=== PATIENT | female | born 1950 | race Caucasian/White ===

== ENCOUNTER 2018-03-14 11:45 | Inpatient (IN) | payer MEDICARE, OTHER, SELFPAY ==
[2018-03-14 11:45] VITALS: BP 104/58; PULSE 57; RESP 20; TEMP 36.4; O2SAT 100; BMI 18.6
[2018-03-14 13:17] LABS: Absolute Lymphocyte Count 0.82 X10^3/ul (0.83-4.51); Absolute Neutrophil Count 5.8 X10^3/uL (2.0-7.7); Basophil# 0.01 X10^3/uL; Basophil% 0.1 % (0-1); Eosinophil# 0.02 X10^3/uL; Eosinophils% 0.3 % (0-5); Hematocrit 37.6 % (37-47); Hemoglobin 12.6 g/dl (12.0-15.0); Lymphocyte # 0.82 X10^3/ul (4.0); Lymphocyte % 11.6 % (19-41); Mean Corp Hgb Conc 33.5 g/gl (32-36); Mean Corpuscular Volume 89.5 fL (81-99); Mean Platelet Vol. 8.9 fl (6.2-12.0); Monocyte# 0.36 X10^3/uL; Monocyte% 5.1 % (0-10); Neutrophil # 5.84 X10^3/uL (2.7-7.7); Neutrophil % 82.9 % (47-70); Platelet Count 297 K/mm3 (150-450); RBC Distribution Width CV 13.6 % (11.6-14.6); RBC Distribution Width SD 44.2 fl (35.1-43.9); White Blood Count 7.1 K/mm3 (4.4-11.0)
[2018-03-14 13:18] LABS: POSITIVE COUNT NO; POSITIVE DIFFERENTIAL NO; POSITIVE MORPHOLOGY NO
[2018-03-14] MEDS: Ondansetron 4 MG/2 ML Vial IV (13:26)
[2018-03-14] MEDS: Morphine 4 MG/ML Syringe IV ×3 (13:26→21:22)
[2018-03-14] MEDS: 0.9% Normal Saline 1,000 ML 1000 ML IV (13:26)
[2018-03-14 13:53] LABS: AST(SGOT) 915 U/L (15-37); Alanine Aminotransfer ALT/SGPT 526 U/L (13-56); Albumin, Serum 3.7 g/dL (3.2-5.0); Alkaline Phosphatase 113 U/L (45-117); Anion Gap 12 (5-15); BUN 18 mg/dL (7-18); BUN/Creat Ratio 20.6 RATIO (10-20); Chloride 105 mmol/L (98-107); Creatinine, Serum 0.87 mg/dL (0.55-1.02); EST Glomerular Filtration Rate 69 mL/min (>60); Est Glom Filt Rate - Afr Amer 84 mL/min (>60); Globulin 3.8 g/dL (2.2-4.2); Glucose 169 mg/dL (74-106); Lipase 25303 U/L (73-393); Potassium 3.7 mmol/L (3.5-5.1); Protein, Total 7.5 g/dL (6.4-8.2); Sodium Level 143 mmol/L (136-145)
--- NOTE | 2018-03-14 13:58 | ED.VISSUMM ---
- ER Visit Summary Date of Service: 03/14/18 Chief Complaint: Abdominal pain History of Present Illness: The patient is a 67 F who presents with abdominal pain that began today. Patient states the pain began earlier this morning. Patient states the pain started in her right lower thoracic back and his radiated around to the right upper quadrant. Patient states that she did eat some fatty foods last night before she went to bed. Patient admits to some nausea and vomiting. Patient also admits to some loose stools today. Patient denies any dysuria or hematuria. Patient denies any fevers or chills. Patient denies any chest pain or shortness of breath. Physical Examination: Vital signs are stable. Patient is afebrile. Patient is in no acute distress. Oral mucosa is pink and moist. Neck is supple. Trachea is midline. There is no JVD noted. Heart was regular rate and rhythm. Lungs are clear and equal bilateral. There is good respiratory effort noted. Abdomen is soft. Bowel sounds are normal. There is some tenderness over the right upper quadrant. There is a positive De Leon sign noted. There is no rebound or guarding noted. Cranial nerves II through XII are intact. There are no focal motor or sensory deficits noted. Test Results: CBC was within normal limits. Comprehensive metabolic profile showed an elevated bilirubin of 1.6, ALT was elevated at 526, AST was elevated at 915. Lipase was elevated at 25,303. CT scan of the abdomen and pelvis showed multiple gallstones with distention of the gallbladder. There is questionable wall thickening. There is also inflammation of the pancreas noted. Emergency Department Course and Treatment: Patient was given IV fluids and morphine here. Case was discussed with Dr. Barajas. She will admit the patient to her service. Patient understood and was agreeable with the plan. All questions were answered. Disposition: Admit to hospital Impression: Gallstone pancreatitis This note was generated with Pager dictation software. It may contain incorrect words, spelling, and punctuation that were not noted in review of the chart prior to signing ED Disposition - Plan for ED Patient: Disposition: Acute Care Hospital [facility] Chief Complaint: Abd Pain Diagnosis: Acute gallstone pancreatitis Referrals: Sal Adams MD [Primary Care Provider] -
[2018-03-14 15:28] VITALS: BP 128/68; PULSE 88; RESP 16; O2SAT 100
[2018-03-14 16:32] VITALS: RESP 18; BMI 18.6
[2018-03-14 16:36] VITALS: BP 151/73; PULSE 65; RESP 18; TEMP 36.6; O2SAT 100
[2018-03-14] MEDS: Lactated Ringers 1,000 ML 150 ML IV ×2 (17:15→23:33)
[2018-03-14 17:21] LABS: Lipase 10880 U/L (73-393)
--- NOTE | 2018-03-14 17:51 | PCM.HP.BLA ---
History and Physical Date of Admission: 03/14/18 Chief Complaint: abdominal pain, nausea/emesis History of Present Illness: Pleasant 67 y/o WF who presents with gallstone pancreatitis. She feels that she has had gallbladder disease for years, has had twinges of pain, but never thought to follow up with this. This pain was severe in onset, beginning at 3 am and awoke patient from sleep. She has had nausea and bouts of dry heaving. She presented to [facility] ED. Work up - WBC normal but with left shift of diff, AST/ALT 915/526, normal alk phos, t bili 1.6, lipase 47859 CT scan - multiple gallstones, GB distention with wall thickening, peripancreatic fat stranding or edema - acute pancreatitis Past Medical History: denies major medical illnesses Past Surgical History: colonoscopy 11 y ago hysterectomy/BSO tonsillectomy excision of soft tissue mass of leg - benign Medications: biotin calcium MVI Magnesium Allergies: Has no known drug allergies Social history: TOB use denies ETOH use denies , lives with spouse Mother had breast cancer, daughter had breast cancer Father had prostate cancer Review of Systems: General - denies fevers Cardiovascular denies chest pain, denies history of heart attack Pulmonary denies shortness of breath, denies coughing up blood Gastrointestinal as per HPI, denies blood in stools, has chronic constipation - bowel movement every day but rabbit pellets - like Neurological denies numbness/weakness of extremities, denies seizures, denies history of stroke Genitourinary denies burning with urination, denies blood in urine Hematological denies spontaneous/prolonged bleeding, denies history of blood transfusions, denies history of deep venous thromboses and/or pulmonary emboli Skin denies open non healing wounds Musculoskeletal denies history of fractures Endocrine denies diabetes Psychological denies hallucinations Physical examination: Vital signs Temp 97.6F HR 73 BP 104/58 RR 18 General WD/WN WF in no apparent distress, alert and oriented, not septic appearing HEENT Normocephalic. EOM intact with sclera clear and no icterus noted. Neck is supple with no jugular venous distention noted. Trachea is midline. Lungs clear to auscultation. normal breath sounds in all lung guzman. No rales/rhonchi/wheezing noted. No labored breathing noted, such as retractions. Heart normal S1 and S2 auscultated. No rubs/clicks/murmurs noted. Abdomen soft and benign. Normal bowel sounds. No abdominal bruits noted. No distention or tympany noted. No masses noted. No hepatosplenomegaly noted. Extremities no calf tenderness noted. No pitting edema noted. Genitourinary/Rectal deferred Skin normal skin integrity. Neurological non focal. Psychological normal affect, patient is calm and appropriate Impression: gallstone pancreatitis cholelithiasis Discussion/Plan: I have discussed the above with the patient. I have explained disease process to patient and what procedures will be required. I have recommended ERCP and laparoscopic cholecystectomy. I have described both procedures to patient. I have counseled the patient as to the risks of the procedure, including but not limited to: infection, bleeding, injury to any blood vessels/nerves, scar tissue, injury to any intrabdominal organs, injury to kidney/ureters, injury to bowel/bladder, injury to the common bile duct/biliary tree, bile leakage, intraabdominal abscess/bleeding, hernias at incisional sites, wound infections, possible open procedure, complications of anesthesia, postoperative pneumonia/cardiac problems/blood clots etc. the patient understands. She agrees to proceed with above, depending upon serum lab test evaluation in the morning, timing of the procedures will be determined. I have answered all questions to the patients satisfaction and the patient has no further questions.
[2018-03-14 19:22] LABS: Lipase 7178 U/L (73-393)
[2018-03-14 20:16] VITALS: BP 141/83; PULSE 66; RESP 18; TEMP 36.6; O2SAT 95
[2018-03-15] VITALS (11 sets, daily range): BP systolic 119–146; BP diastolic 63–77; PULSE 62–74; RESP 16–18; TEMP 36.3–37.2; O2SAT 93–100; BMI 18.6; BMI 19.3
--- NOTE | 2018-03-15 01:22 | NURSING ---
I took away patients sips and chips at midnight for possible ERCP in the a.m. on 03/15/18.
[2018-03-15] MEDS: Morphine 4 MG/ML Syringe IV ×3 (02:00→09:26)
[2018-03-15] MEDS: Ondansetron 4 MG/2 ML Vial IV ×2 (06:04→22:34)
[2018-03-15] MEDS: Lactated Ringers 1,000 ML 150 ML IV ×3 (06:07→20:50)
[2018-03-15 06:32] LABS: AST(SGOT) 632 U/L (15-37); Alanine Aminotransfer ALT/SGPT 727 U/L (13-56); Albumin, Serum 3.2 g/dL (3.2-5.0); Alkaline Phosphatase 127 U/L (45-117); Globulin 3.8 g/dL (2.2-4.2); Lipase 1802 U/L (73-393)
[2018-03-15] MEDS: 0.9% NaCl Peripheral Flush Adult/Peds IV ×2 (09:26→17:54)
--- NOTE | 2018-03-15 10:30 | CASEMGMT ---
KRISTAL SIEGEL Face to Face with patient for initial transition planning/care coordination assessment. RN CM introduced self and role at [facility]. Patient lying in bed, alert and oriented. Patient willing to participate in assessment and is able to answer all questions appropriately. Care providers, pharmacy, and demographics verified. See link attached. Patient wishes to discharge home, denies need for home health at this time. Patient states she has no further needs or concerns at this time. CM to follow for discharge planning needs that may arise. Disposition Plan: Patient to discharge home with family support and follow-up plans in place. Nikki BRUNSON, RN, CM
--- NOTE | 2018-03-15 13:36 | NURSING ---
report called to nitesh in AC at this time-
--- NOTE | 2018-03-15 14:50 | NURSING ---
patient taken to surgery @ 1330- off unit at this time.
--- NOTE | 2018-03-15 15:16 | PCM.IMDPSTOP ---
Immediate Post-Op Note Date of Procedure: 03/15/18 Primary Surgeon/Physician: Danielle Barajas financial rep: Dhaval Mendes Pre-Operative Diagnosis: cholelithiasis, choledocholithiasis, acute pancreatitis Post-Operative Diagnosis: cholelithiasis, acute on chronic cholecystitis, normal cholangiogram Surgery/Procedure Performed:: laparoscopic cholecystectomy with cholangiograms Description of Surgical Findings:: edematous gallbladder wall, normal cholangiograms, cholelithiasis, acute on chronic cholecystitis Estimated Blood Loss: 30 ml Specimen's removed: gallbladder and contents Type of Anesthesia:: General ASA Class: ASA1 Normal Healthy Patient - Admit VTE Documentation VTE Present on Admission: Yes VTE Mechan Device Prophylaxis: SCD's
--- NOTE | 2018-03-15 15:22 | PCM.DC.GB ---
Discharge Diet: No Restrictions - drink plenty of fluids, avoid carbonated beverages for a few days Discharge Activity: Return to Normal Activity, May not drive while taking narcotic pain medications. Call your doctor if your incision/area has: Continuous Slow Oozing, Foul Smelling Discharge Call your doctor if you observe: Fever of 101 or Higher Additional Dressing/Incision Instructions:: Leave dressings intact. May get wet in shower. Do not soak - no tub baths/swimming Allergies/Adverse Reactions: Allergies Sulfa (Sulfonamide Antibiotics) Allergy (Verified 05/04/16 14:59) Unknown Medications to take at Discharge Biotin 1,000 mcg PO DAILY 03/14/18 Calcium Carbonate/Vitamin D3 [Calcium 500-Vit D3 600 Tablet] 1 tab PO DAILY 03/14/18 Magnesium Oxide [Magnesium] 400 mg PO DAILY 03/14/18 Multivitamin [Multiple Vitamins] 1 tab PO DAILY 03/14/18 Hydrocodone/Acetaminophen [[place] 5-325 Tablet] 1 ea PO Q6H PRN PRN 5 Days #20 tab 03/15/18 The following prescriptions were given: Hydrocodone/Acetaminophen [[place] 5-325 Tablet] 1 ea PO Q6H PRN PRN 5 Days #20 tab PRN Reason: Pain Primary Care Physician: Sal Adams MD [Primary Care Provider] - Test Results: Test results from this visit will be discussed in further detail at your follow-up appointment, if applicable. Please Follow Up With: Danielle Barajas MD - call When: to be seen in 7-10 days, please call for date and time, thank you
[2018-03-15] MEDS: Bupiv/Epi 0.5% Mpf 30 ML Vial (16:50)
--- NOTE | 2018-03-15 16:54 | OP.PCM_ITS ---
Report of Operation Date of Procedure: 03/15/18 Pre-Operative Diagnosis: cholelithiasis, choledocholithiasis, acute pancreatitis Post-Operative Diagnosis: cholelithiasis, acute on chronic cholecystitis, normal cholangiogram Surgery/Procedure Performed:: laparoscopic cholecystectomy with cholangiograms Description of Surgical Findings:: edematous gallbladder wall, normal cholangiograms, cholelithiasis, acute on chronic cholecystitis landscape architecture professor: Dhaval Mendes Type of Anesthesia:: General Anesthesiologist: Geo La Specimen's removed: gallbladder and contents Estimated Blood Loss (mL): 30 ml Fluids Replaced: 1000 ml RL Description of Procedure: After informed consent was given, the patient was brought to the Operating Room and placed in the supine position. Appropriate time out protocol was followed. The patient was then placed under general endotracheal anesthesia. The abdomen was then prepped with a sterile surgical skin preparation and sterile surgical drapes were placed. A skin fold near the umbilical dimple was grasped with penetrating clamps and the skin and subcutaneous tissues were infiltrated with 0.5% marcaine with epinephrine. A skin incision was then made with a 15 blade scalpel. The anterior abdominal wall was elevated and a Veress needle was carefully inserted into the intraabdominal cavity. It was checked to be in the proper position with a normal saline drop test. A CO2 pneumoperitoneum was then created. Once this was achieved, then the Veress needle was removed and an 11mm trocar was placed in its stead. A 10mm laparoscope was then inserted into the trocar and careful attention was directed to the intraabdominal contents. There was no evidence of injury to any intraabdominal organs from insertion of the Veress needle or the trocar. Under direct visualization, a 5mm subxiphoid trocar and two lateral 5mm right subcostal trocars were placed. The skin and subcutaneous tissues at these sites were infiltrated with 0.5% marcaine with epinephrine prior to placement of these trocars. Attention was then directed to the right upper quadrant of the abdomen. Graspers were placed in the lateral trocars to grasp the distal aspect of the gallbladder and direct it cephalad and to grasp the gallbladder at Bhardwaj?s pouch and direct it laterally. There were omental adhesions to the free surface of the gallbladder wall. The gallbladder wall was edematous. Dissection then began on the proximal gallbladder continuing down to the area of the triangle of Calot to bluntly dissect out the cystic duct. The neck of the gallbladder was identified and blunt dissection continued to dissect out a segment of the cystic duct. A clip was then placed on the neck of the gallbladder. A small ductotomy was then made. A Ranfac catheter was brought in through a separate skin incision and placed into the cystic duct. An intraoperative cholangiogram was performed under fluoroscopy. The xray revealed no lesions in the common bile duct, arborization of the biliary tree, and good flow into the duodenum. The Ranfac catheter was then removed and two clips were placed proximal to the ductotomy and the cystic duct was then transected. The cystic artery was visualized and bluntly isolated and then two clips were placed proximally and one clip distally and then it was transected between the proximal and distal clips. The gallbladder was then from the liver bed using electrocautery and thus able to be brought out of the umbilical port. It was then forwarded to pathology for analysis. The liver bed was carefully examined. There was no evidence of bile leakage or bleeding. Because of inflammatory oozing, Yissel was applied to the liver bed. The cystic duct stump and cystic artery stump had their clips intact and there was no evidence of bile leakage or bleeding. The remainder of the abdomen was grossly normal. The CO2 was released and all trocars removed intact. The periumbilical fascia was approximated with a [id number] 0 vicryl suture. All skin incision were closed with 4-0 monocryl in a subdermal fashion. Cavilol and Steristrips were used to reinforce the skin closure. Sterile dressings were applied to all wounds. The patient was extubated and brought to the Recovery Room in stable condition. - Complications none noted - Admit VTE Documentation VTE Present on Admission: Yes VTE Mechan Device Prophylaxis: SCD's
--- NOTE | 2018-03-15 18:07 | SUR.PHASEI ---
ON ARRIVAL TO PACU, RIGHT ANTECUBITAL IV INFILTRATED AND LEAKING, ARM WITH CREPITUS FROM JUST ABOVE RIGHT ANTECUBITAL TO HAND, MILD EDEMA NOTED.
--- NOTE | 2018-03-15 20:42 | NURSING ---
Patient up and ambulated in hallway with this RN.
[2018-03-16] MEDS: Morphine 4 MG/ML Syringe IV (00:06)
[2018-03-16 03:30] VITALS: BP 125/62; PULSE 74; RESP 16; TEMP 37.1; O2SAT 94
[2018-03-16] MEDS: Lactated Ringers 1,000 ML 150 ML IV (03:37)
--- NOTE | 2018-03-16 05:47 | NURSING ---
Patient walked out with SKIN PASS OPERATOR in hallway to get coffee and then returned to room. Now sitting in bed watching TV.
--- NOTE | 2018-03-16 07:09 | PCM.PN.SRG ---
Patient Problems: Active and Suspected Problems Acute gallstone pancreatitis (Acute) Subjective: patient states that she wants to go home now, however, when I called last night and spoke to nurse, the nurse stated that she wanted to stay overnight feels well, tolerated liquids - Physical Exam General: Alert, Oriented x3 Oral: Moist Mucosa Neck: Supple Cardiovascular: Regular rate Abdomen: Soft, - - dressings intact, slight seepage with bruising of perumbilical site Vital Signs Temp Pulse Resp BP Pulse Ox 98.7 F 74 16 125/62 H 94 03/16/18 03:30 03/16/18 03:30 03/16/18 03:30 03/16/18 03:30 03/16/18 03:30 Oxygen Delivery Method Room Air Weight: 52.6 kg Body Mass Index (BMI) 19.3 Intake and Output for Last 24 Hours 03/14/18 03/15/18 03/16/18 23:59 23:59 23:59 Intake Total 370 / 370 4668 / 4668 1011 / 1011 Output Total 1675 / 1675 1100 / 1100 Balance 370 / 370 2993 / 2993 -89 / -89 Medical Necessity - Tobacco Use Smoking Status: Never smoker Assessment/Plan All Active Problems Acute gallstone pancreatitis (Acute) Impression: POD#1 s/p laparoscopic cholecystectomy with IOC PLan: d/c to home, follow up with me on Thursday, call for time
[2018-03-16 07:34] VITALS: BP 127/64; PULSE 75; RESP 18; TEMP 37.2; O2SAT 94
[2018-03-16 07:50] VITALS: BP 127/64; PULSE 75; RESP 18; TEMP 37.2; O2SAT 94
--- NOTE | 2018-03-16 10:50 | GALL_PTH ---
PATIENT: HUMA HOROWITZ LOC: MS3 U#:[id number] AGE/SX: 67/F ROOM: MS316 RE03/14/[address]: Dr. Danielle Barajas MD : 1950 BED: 1 DIS: 03/16/2018 SPEC #: [id number] RECD: 03/16/18 13:48 STATUS: MAKENZIE REQ #: [id number] JUMANA: 03/16/18 10:[address]: Danielle Barajas DEPT: SURGICAL PATHOLOGY RECD BY: Thompson Wall ENTERED: 03/16/18 13:49 SP TYPE: ALVARADO PARKS DR: Dr. Sal Adams MD Tissues: Gallbladder, NOS Procedures: Surgery Specimen Level III HEADER OPERATION: Laparoscopic cholecystectomy with intraoperative cholangiogram PRE-OP DIAGNOSIS: Gallstones pancreatitis, cholelithiasis TISSUE SUBMITTED: Gallbladder MICROSCOPIC DIAGNOSIS Gallbladder, cholecystectomy: Chronic cholecystitis and cholelithiasis. AM:ulises 03/18/18 MICROSCOPIC DESCRIPTION Slides are reviewed. GROSS DESCRIPTION Received is one container labeled with the patient's name and designated gallbladder. The specimen consists of a gallbladder measuring 9.5 x 2.5 x 2.5 cm. The external surface is smooth and glistening. Focally, it is granular, hemorrhagic and contains cautery artifact. The lumen of the gallbladder and the specimen container contains multiple black calculi ranging in size from 0.2 to 1.3 cm. The gallbladder mucosa is bile-stained and free of mass lesions. The gallbladder wall averages 0.2 cm in thickness. Golf Course Superintendent sections of the gallbladder and the cystic duct are submitted in one cassette. / AM:ulises 03/16/18 TC:3 [facility]: [id number]
== END 2018-03-16 07:52 | disposition home or self-care (01) | DRG 419 ==
LOC: ED 15:35 → MS3 16:03
PROVIDERS: Admitting Provider Surgery; Emergency Provider Emergency Medicine; Family Provider Family Medicine; PCP Family Medicine; Visit Provider Surgery
PROC: 0FT44ZZ Resection of Gallbladder, Percutaneous Endoscopic Approach (ICD-10-PCS; CPT 47610; principal; 2018-03-15 10:30)
DX: K80.12 Calculus of gallbladder with acute and chronic cholecystitis without obstruction (principal)
CPT/HCPCS: 36415; 74176; 74300; 76000; 80053; 80076; 83690; 85025; 88304; 93005; 97802; 99282; J7030; J7120; A4216; J2405

== ENCOUNTER → 2018-07-01 12:21 | Outpatient (CLI) | payer MEDICARE, OTHER, SELFPAY ==
--- NOTE | 2018-07-01 12:25 | BI_ITS ---
MAMMOGRAPHY - BILATERAL SCREENING REASON FOR EXAM: Female, 67 years old. Routine annual screening examination. PERTINENT HISTORY: Daughter with breast cancer. Mother with breast cancer. TECHNIQUE: Digital bilateral breast day (3D mammographic acquisition) in the CC and MLO projections. 2-D mediolateral oblique (MLO) and craniocaudad (CC) views of both breasts were obtained. CAD: Full Field Digital Mammography with Computer Added Detection was performed. COMPARISON: Comparison is made with prior study dated November 26, 2016 and April 28, 2013. FINDINGS: Breast Composition: There are scattered areas of fibroglandular density. There are no dominant masses or suspicious calcifications. Stable small bilateral axillary lymph nodes. No other significant abnormalities are identified. There has been no significant change since the prior study. BI/SCREENING MAMM (CAD), BILAT IMPRESSION: Stable bilateral screening mammogram. Yearly follow-up mammogram recommended. (A) ASSESSMENT CATEGORY: BIRADS Category 2: Benign. A letter regarding these results will be sent to the patient by the facility within 30 days. Approximately 10% of breast cancers are not detected by mammography. A normal mammogram should not delay biopsy of a clinically suspicious abnormality. [id number] Electronically Signed: Theodore Hunter MD at 14:49 EST Tel [phone], Service support ,
--- NOTE | 2018-07-01 12:27 | BD_ITS ---
STUDY: DUAL ENERGY X-RAY ABSORPTIOMETRY / DXA REASON FOR EXAM: Female, 67 years old. The patient is postmenopausal. No loss of height. TECHNIQUE: Bone Mineral Density (BMD) measurements of lumbar spine and bilateral hips were obtained. COMPARISON: Comparison is made with prior study dated April 28, 2013. FINDINGS: Lumbar Spine (L1-L4): g/cm2 (1.004) / T-score (-1.5) / Z-score (0.1) Findings are suggestive of osteopenia with a moderate fracture risk. Left Femur Total: g/cm2 (0.796) / T-score (-1.7) / Z-score (-0.5) Left Femoral Neck: g/cm2 (0.790) / T-score (-1.8) / Z-score (-0.3) Right Femur Total: g/cm2 (0.790) / T-score (-1.7) / Z-score (-0.5) Right Femoral Neck: g/cm2 (0.800) / T-score (-1.7) / Z-score (-0.2) The T-Scores on the most recent prior examination were: Lumbar Spine (L1-L4): There has been worsening of bone density since the previous examination. Left Femur Total: which represents a worsening of 8.7%. Right Femur Total: which represents a worsening of 7.9%. BD/Dexa Bone Density Study IMPRESSION: The patient is considered osteopenic as outlined below according to World [place] Organization (WHO) criteria with a moderate fracture risk. There has been worsening of bone density since the previous examination. Reference Information: The T-score is the number of standard deviations above or below the standard which is normal for young adults at their peak bone mineral density. The World Health Organization (WHO) interprets the T-scores as follows: Above -1 Normal bone density Between -1 and -2.5 Osteopenia Equal to / or below -2.5 Osteoporosis As a practical clinical guideline, osteopenia may be graded as follows: Mild -1 through -1.5 Moderate -1.6 through -2.0 Severe -2.1 through -2.4 The Z-score is the number of standard deviations above or below age-matched controls. A Z-score of less than -1.5 would be considered abnormal. References: 1. NIH Osteoporosis and Related Bone Diseases http://www.osteo.org 2. International Society for Clinical Densitometry http://www.iscd.org 3. National Osteoporosis Foundation http://www.nof.org Electronically Signed: Theodore Hunter MD at 14:08 EST Tel [phone], Service support ,
--- OUTSIDE RECORDS SUMMARY | 2018-08-17 07:28 | XMS RPT_ITS ---
:1950 Author Organization OHIP Care Team Providers Name Role Phone DANIELLE BARAJAS Attending Unavailable Sal Adams Attending Unavailable Sal Adams Referring Unavailable Sal Adams Primary Care Unavailable Sal Adams Primary Care Unavailable Danielle Barajas Admitting Unavailable Danielle Barajas Attending Unavailable Miguel Funes Attending Unavailable Danielle Barajas Referring Unavailable PROBLEMS PROBLEMS DATE TYPE CONDITION / CODE ATTENDING STATUS SOURCE 07/01/2018 Unknown M85.89 - Other Sal Adams Active Jonelle specified disorders of Community bone density and Hospital structure, multiple Repository sites / M85.89(ICD-10) 07/01/2018 Unknown Z12.31 - Encounter for Sal Adams screening mammogram [facility] for malignant neoplasm [facility] breast / Repository Z12.31(ICD-10) 04/16/2018 Unknown R94.31 - Abnormal Teodoro Funes electrocardiogram [facility] [ECG] [EKG] / Hospital R94.31(ICD-10) Repository 03/16/2018 Unknown G89.18 - Other acute Danielle Barajas postprocedural pain / Community G89.18(ICD-10) Hospital Repository PROCEDURES PROCEDURES No Procedure Records FoundRESULTS RESULTS DEXA BONE DENSITY Observed: 07/01/2018 Status: F Source: [place] STUDY 12:25 PM [facility] REPOSITORY [facility] Imaging Services [address] [place] [address] Dexa Bone Density Study MR#: [id number] Acct: [id number] Name: HUMA HOROWITZ Rep #: [id number] : 1950 F 67 From: Theodore Hunter MD PCP: Sal Adams MD Status: REG CLI Study: Dexa Bone Density Study Date of Exam: 07/01/18 Exam# [id number] Ordering Dr: Sal Adams MD STUDY: DUAL ENERGY X-RAY ABSORPTIOMETRY / DXA REASON FOR EXAM: Female, 67 years old. The patient is postmenopausal. No loss of height. TECHNIQUE: Bone Mineral Density (BMD) measurements of lumbar spine and bilateral hips were obtained. COMPARISON: Comparison is made with prior study dated April 28, 2013. FINDINGS: Lumbar Spine (L1-L4): g/cm2 (1.004) / T-score (-1.5) / Z-score (0.1) Findings are suggestive of osteopenia with a moderate fracture risk. Left Femur Total: g/cm2 (0.796) / T-score (-1.7) / Z- score (-0.5) Left Femoral Neck: g/cm2 (0.790) / T-score (-1.8) / Z- score (-0.3) Right Femur Total: g/cm2 (0.790) / T-score (-1.7) / Z- score (-0.5) Right Femoral Neck: g/cm2 (0.800) / T-score (-1.7) / Z-score (-0.2) The T-Scores on the most recent prior examination were: Lumbar Spine (L1-L4): There has been worsening of bone density since the previous examination. Left Femur Total: which represents a worsening of 8.7%. Right Femur Total: which represents a worsening of 7.9%. BD/Dexa Bone Density Study IMPRESSION: The patient is considered osteopenic as outlined below according to World [place] Organization (WHO) criteria with a moderate fracture risk. There has been worsening of bone density since the previous examination. Reference Information: The T-score is the number of standard deviations above or below the standard which is normal for young adults at their peak bone mineral density. The World Health Organization (WHO) interprets the T-scores as follows: Above -1 Normal bone density Between -1 and -2.5 Osteopenia Equal to / or below -2.5 Osteoporosis As a practical clinical guideline, osteopenia may be graded as follows: Mild -1 through -1.5 Moderate -1.6 through -2.0 Severe -2.1 through -2.4 The Z-score is the number of standard deviations above or below age-matched controls. A Z-score of less than -1.5 would be considered abnormal. References: 1. NIH Osteoporosis and Related Bone Diseases http://www.osteo.org 2. International Society for Clinical Densitometry http://www.iscd.org 3. National Osteoporosis Foundation http://www.nof.org Electronically Signed: Theodore Hunter MD at 14:08 EST Tel [phone], Service support , CC: Sal Adams MD Veterinary Poultry Inspector: Signed SCREENING MAMM (CAD), Observed: 07/01/2018 Status: F Source: [facility] 12:25 PM [facility] REPOSITORY [facility] Imaging Services [address] [place] [address] SCREENING MAMM (CAD), BILAT MR#: [id number] Acct: [id number] Name: HUMA HOROWITZ Rep #: [id number] : 1950 F 67 From: Theodore Hunter MD PCP: Sal Adams MD Status: REG CLI Study: SCREENING MAMM (CAD), BILAT Date of Exam: 07/01/18 Exam# [id number] Ordering Dr: Sal Adams MD MAMMOGRAPHY - BILATERAL SCREENING REASON FOR EXAM: Female, 67 years old. Routine annual screening examination. PERTINENT HISTORY: Daughter with breast cancer. Mother with breast cancer. TECHNIQUE: Digital bilateral breast day (3D mammographic acquisition) in the CC and MLO projections. 2-D mediolateral oblique (MLO) and craniocaudad (CC) views of both breasts were obtained. CAD: Full Field Digital Mammography with Computer Added Detection was performed. COMPARISON: Comparison is made with prior study dated November 26, 2016 and April 28, 2013. FINDINGS: Breast Composition: There are scattered areas of fibroglandular density. There are no dominant masses or suspicious calcifications. Stable small bilateral axillary lymph nodes. No other significant abnormalities are identified. There has been no significant change since the prior study. BI/SCREENING MAMM (CAD), BILAT IMPRESSION: Stable bilateral screening mammogram. Yearly follow-up mammogram recommended. (A) ASSESSMENT CATEGORY: BIRADS Category 2: Benign. A letter regarding these results will be sent to the patient by the facility within 30 days. Approximately 10% of breast cancers are not detected by mammography. A normal mammogram should not delay biopsy of a clinically suspicious abnormality. [id number] Electronically Signed: Theodore Hunter MD at 14:49 EST Tel [phone], Service support , CC: Sal Adams MD Veterinary Poultry Inspector: Signed PROGRESS Observed: 03/24/2018 Status: COMPLETED Source: [place] 2:31 PM [facility] REPOSITORY HNO ID: [id number] Author: Danielle Barajas Service: (none) Author Type: Physician Type: Progress Notes Filed: 03/27/2018 7:46 PM Note Text: Ms. Horowitz is s/p laparoscopic cholecystectomy for acute on chronic cholecystitis and cholelithiasis on 03/15/18 and also presentation of gallstone pancreatitis. Intraoperative cholangiograms were clear. Patient complaint of soreness in right upper quadrant. Examination: abdomen is soft and benign, wounds are well healed and no evidence of infection Impression: s/p laparoscopic cholecystectomy Plan: follow up as per needed. Patient to return to her primary physician for medical care. CNOV Observed: 03/24/2018 Status: COMPLETED Source: [place] 1:20 PM [facility] REPOSITORY Office Visit (GENSWS) LORHUMA ([id number]) 1950 F Date Time Provider Department 03/24/18 1:20 PM DANIELLE BARAJAS During your visit today, we recorded the following information about you: Danielle Barajas MD 03/27/2018 7:46 PM Signed Ms. Horowitz is s/p laparoscopic cholecystectomy for acute on chronic cholecystitis and cholelithiasis on 03/15/18 and also presentation of gallstone pancreatitis. Intraoperative cholangiograms were clear. Patient complaint of soreness in right upper quadrant. Examination: abdomen is soft and benign, wounds are well healed and no evidence of infection Impression: s/p laparoscopic cholecystectomy Plan: follow up as per needed. Patient to return to her primary physician for medical care. Referring Provider: SELF [200] Allergies As of Date: 03/24/2018 Noted Allergy Reaction SULFA (SULFONAMIDE ANTIBIOTICS) 03/24/2018 16 - Unknown Comments: childhood Date Reviewed: Never Reviewed Reason for Visit: Post Op [174] Cmt: post op lap catherine Primary Visit Diagnosis:Surgery follow-up examination [Z09] Problem List As Of Date: 03/24/2018 (None) Encounter Status:Closed by MD DANIELLE BARAJAS on 03/27/18 OPERATIVE REPORT Observed: 03/21/2018 Status: F Source: [place] 6:04 PM [facility] REPOSITORY [facility] Medical Records Department [address] [place] [address] Operative Report 03/15/18 1653 MR#: [id number] Acct: [id number] Name: HUMA HOROWITZ Rep #: [id number] : 1950 67 From: Danielle Barajas MD PCP: Sal Adams MD Status: DIS IN Y Location: MS3 SB593-2 Report of Operation Date of Procedure: 03/15/18 Pre-Operative Diagnosis: cholelithiasis, choledocholithiasis, acute pancreatitis Post-Operative Diagnosis: cholelithiasis, acute on chronic cholecystitis, normal cholangiogram Surgery/Procedure Performed:: laparoscopic cholecystectomy with cholangiograms Description of Surgical Findings:: edematous gallbladder wall, normal cholangiograms, cholelithiasis, acute on chronic cholecystitis tumble tailstock turret lathe operator: Dhaval Mendes Type of Anesthesia:: General Anesthesiologist: Geo La Specimen's removed: gallbladder and contents Estimated Blood Loss (mL): 30 ml Fluids Replaced: 1000 ml RL Description of Procedure: After informed consent was given, the patient was brought to the Operating Room and placed in the supine position. Appropriate time out protocol was followed. The patient was then placed under general endotracheal anesthesia. The abdomen was then prepped with a sterile surgical skin preparation and sterile surgical drapes were placed. A skin fold near the umbilical dimple was grasped with penetrating clamps and the skin and subcutaneous tissues were infiltrated with 0.5% marcaine with epinephrine. A skin incision was then made with a 15 blade scalpel. The anterior abdominal wall was elevated and a Veress needle was carefully inserted into the intraabdominal cavity. It was checked to be in the proper position with a normal saline drop test. A CO2 pneumoperitoneum was then created. Once this was achieved, then the Veress needle was removed and an 11mm trocar was placed in its stead. A 10mm laparoscope was then inserted into the trocar and careful attention was directed to the intraabdominal contents. There was no evidence of injury to any intraabdominal organs from insertion of the Veress needle or the trocar. Under direct visualization, a 5mm subxiphoid trocar and two lateral 5mm right subcostal trocars were placed. The skin and subcutaneous tissues at these sites were infiltrated with 0.5% marcaine with epinephrine prior to placement of these trocars. Attention was then directed to the right upper quadrant of the abdomen. Graspers were placed in the lateral trocars to grasp the distal aspect of the gallbladder and direct it cephalad and to grasp the gallbladder at Bhardwaj s pouch and direct it laterally. There were omental adhesions to the free surface of the gallbladder wall. The gallbladder wall was edematous. Dissection then began on the proximal gallbladder continuing down to the area of the triangle of Calot to bluntly dissect out the cystic duct. The neck of the gallbladder was identified and blunt dissection continued to dissect out a segment of the cystic duct. A clip was then placed on the neck of the gallbladder. A small ductotomy was then made. A Ranfac catheter was brought in through a separate skin incision and placed into the cystic duct. An intraoperative cholangiogram was performed under fluoroscopy. The xray revealed no lesions in the common bile duct, arborization of the biliary tree, and good flow into the duodenum. The Ranfac catheter was then removed and two clips were placed proximal to the ductotomy and the cystic duct was then transected. The cystic artery was visualized and bluntly isolated and then two clips were placed proximally and one clip distally and then it was transected between the proximal and distal clips. The gallbladder was then from the liver bed using electrocautery and thus able to be brought out of the umbilical port. It was then forwarded to pathology for analysis. The liver bed was carefully examined. There was no evidence of bile leakage or bleeding. Because of inflammatory oozing, Yissel was applied to the liver bed. The cystic duct stump and cystic artery stump had their clips intact and there was no evidence of bile leakage or bleeding. The remainder of the abdomen was grossly normal. The CO2 was released and all trocars removed intact. The periumbilical fascia was approximated with a aktqwa-at-vtjic 0 vicryl suture. All skin incision were closed with 4-0 monocryl in a subdermal fashion. Cavilol and Steristrips were used to reinforce the skin closure. Sterile dressings were applied to all wounds. The patient was extubated and brought to the Recovery Room in stable condition. - Complications none noted - Admit VTE Documentation VTE Present on Admission: Yes VTE Mechan Device Prophylaxis: SCD's 03/21/181803 <Electronically signed by Danielle Barajas MD> Date Danielle Barajas MD CC: Sal Adams MD; Danielle Barajas MD Signed 12 LEAD ELECTROCARDIOGRAM Observed: 03/19/2018 Status: F Source: [place] 1:37 PM [facility] REPOSITORY [facility] Cardiovascular Services [address] [place] [address] 12 Lead EKG 03/15/18 05 MR#: [id number] Acct: [id number] Name: HUMA HOROWITZ Rep #: [id number] : 1950 67 From: Miguel Funes MD Attending Dr: Danielle Barajas MD Status: DIS IN Ordering Dr: Orville Larose MD Date: 03/15/18 Location: PR3 Sex: F C Admitted: 03/14/18 Test Reason : AM EKG Blood Pressure : / mmHG Vent. Rate : 061 BPM Atrial Rate : 061 BPM P-R Int : 164 ms QRS Dur : 080 ms QT Int : 422 ms P-R-T Axes : 037 065 047 degrees QTc Int : 424 ms Normal sinus rhythm Nonspecific T wave abnormality Abnormal ECG No previous ECGs available Confirmed by SHANTEL KULKARNI, MIGUEL ([id number]), manager editorial VICTOR M HERRERA ([id number]) on 03/19/2018 1:37:16 PM Referred By: POWER Confirmed By:MIGUEL FUNES MD 03/19/18 1337 Date Miguel Funes MD CC: Orville Larose MD; Sal Adams MD; Danielle Barajas MD Signed GALLBLADDER Observed: 03/16/2018 Status: F Source: [place] 10:50 AM [facility] REPOSITORY Patient: HUMA HOROWITZ : 1950 (67/F) Acct Num: [id number] Phys: Danielle Barajas MD Unit Num: [id number] Loc: [facility] [id number] Specimen: [id number] Received: 03/16/18 - 1348 Spec Type: GALLBLADDE TISSUES TISSUES: Gallbladder, NOS GROSS DESCRIPTION Received is one container labeled with the patient's name and designated gallbladder. The specimen consists of a gallbladder measuring 9.5 x 2.5 x 2.5 cm. The external surface is smooth and glistening. Focally, it is granular, hemorrhagic and contains cautery artifact. The lumen of the gallbladder and the specimen container contains multiple black calculi ranging in size from 0.2 to 1.3 cm. The gallbladder mucosa is bile-stained and free of mass lesions. The gallbladder wall averages 0.2 cm in thickness. Fixture Repairer Fabricator sections of the gallbladder and the cystic duct are submitted in one cassette. / AM:ulises 03/16/18 TC:3 CPT: 20077 HEADER OPERATION: Laparoscopic cholecystectomy with intraoperative cholangiogram PRE-OP DIAGNOSIS: Gallstones pancreatitis, cholelithiasis TISSUE SUBMITTED: Gallbladder MICROSCOPIC DESCRIPTION Slides are reviewed. MICROSCOPIC DIAGNOSIS Gallbladder, cholecystectomy: Chronic cholecystitis and cholelithiasis. AM:ulises 03/18/18 Signed Luis E Yolanda 03/18/18 <signature on file> Performed By: #### PGALL #### [facility] [address] [place] [address]. [place], [address] DISCHARGE INSTRUCTION Observed: 03/16/2018 Status: F Source: [place] 7:12 AM [facility] REPOSITORY [facility] Medical Records Department [address] [place] [address] Instructions for Home/Discharge Instructions 03/15/18 1522 MR#: [id number] Acct: [id number] Name: HUMA HOROWITZ Rep #: [id number] : 1950 67 From: Danielle Barajas MD PCP: Sal Adams MD Status: ADM IN ADDENDUM by Danielle Barajas MD on 03/16/18 at 0711 Call to make an appointment to follow up with me on Thursday, thank you Date Danielle Barajas MD cc: Sal Adams MD * Signed Discharge Diet: No Restrictions - drink plenty of fluids, avoid carbonated beverages for a few days Discharge Activity: Return to Normal Activity, May not drive while taking narcotic pain medications. Call your doctor if your incision/area has: Continuous Slow Oozing, Foul Smelling Discharge Call your doctor if you observe: Fever of 101 or Higher Additional Dressing/Incision Instructions:: Leave dressings intact. May get wet in shower. Do not soak - no tub baths/swimming Allergies/Adverse Reactions: Allergies Sulfa (Sulfonamide Antibiotics) Allergy (Verified 05/04/16 14:59) Unknown Medications to take at Discharge Biotin 1,000 mcg PO DAILY 03/14/18 Calcium Carbonate/Vitamin D3 [Calcium 500-Vit D3 600 Tablet] 1 tab PO DAILY 03/14/18 Magnesium Oxide [Magnesium] 400 mg PO DAILY 03/14/18 Multivitamin [Multiple Vitamins] 1 tab PO DAILY 03/14/18 Hydrocodone/Acetaminophen [Mineral 5-325 Tablet] 1 ea PO Q6H PRN PRN 5 Days #20 tab 03/15/18 The following prescriptions were given: Hydrocodone/Acetaminophen [Mineral 5-325 Tablet] 1 ea PO Q6H PRN PRN 5 Days #20 tab PRN Reason: Pain Primary Care Physician: Sal Adams MD [Primary Care Provider] - Test Results: Test results from this visit will be discussed in further detail at your follow-up appointment, if applicable. Please Follow Up With: Danielle Barajas MD - call When: to be seen in 7-10 days, please call for date and time, thank you 03/15/18 5398 <Electronically signed by Danielle Barajas MD> Date Danielle Barajas MD CC: Sal Adams MD CHOLANGIOGRAM/ O Observed: 03/15/2018 Status: F Source: [place] R,INITIAL 10:56 AM [facility] REPOSITORY [facility] Imaging Services [address] [place] [address] Cholangiogram/ O R,Initial MR#: [id number] Acct: [id number] Name: HUMA HOROWITZ Rep #: [id number] : 1950 F 67 From: Fredrick Conn DO PCP: Sal Adams MD Status: ADM IN Study: Cholangiogram/ O R,Initial Date of Exam: 03/15/18 Exam# [id number] Ordering Dr: Danielle Barajas MD CLINICAL HISTORY: Female, 67 years old. Cholecystitis. PROCEDURE: CHOLANGIOGRAM - intraoperative FLUOROSCOPY TIME (if supplied): ( ) minutes/seconds TECHNIQUE: 4 intraoperative images were presented for interpretation. COMPARISON: CT of the head and pelvis, March 14, 2018. FINDINGS: The images demonstrate surgical instruments overlying the region of the second portion of the duodenum. There is a catheter in the cystic duct. There is opacification of the intra and extrahepatic bile ducts without dilatation stricture or filling defect. There is free spillage of contrast into the duodenum with reflux into the proximal pancreatic duct. There is also vague hypodensity suggesting contrast within the gallbladder. Please refer to the operative report for further details. RAD/Cholangiogram/ O R,Initial IMPRESSION: Intraoperative cholangiogram. Electronically Signed: Fredrick Conn DO at 16:32 EDT Tel [phone], Service support , CC: Sal Adams MD; Danielle Barajas MD Veterinary Poultry Inspector: Signed LIVER PROFILE Collected: 03/15/2018 Status: F Source: [place] 5:50 AM [facility] REPOSITORY TYPE CODE TESTS RESULT OUT OF RANGE REFERENCE UNITS LAB L501.1500 6.4-8.2 g/dL Normal T PROT 7.0 LAB L501.1800 3.2-5.0 g/dL Normal ALB 3.2 LAB L501.1950 2.2-4.2 g/dL Normal GLOB 3.8 LAB L501.4100 15-37 U/L High AST 632 LAB L501.4305 45-117 U/L High ALK P 127 LAB L501.4405 13-56 U/L High ALT 727 LAB L501.4600 0.20-1.00 mg/dL High T BILI 1.10 LAB L501.4700 0.00-0.30 mg/dL Normal D BILI 0.30 Performed By: #### L500.3400, L501.2450 #### [facility] [address] [place], [address] LIPASE Collected: 03/15/2018 Status: F Source: [place] 5:50 AM [facility] REPOSITORY TYPE CODE TESTS RESULT OUT OF REFERENCE UNITS RANGE LAB L501.2450 73-393 U/L High LIPASE 1802 Performed By: #### L500.3400, L501.2450 #### [facility] [address] [place], [address] LIPASE Collected: 03/14/2018 Status: F Source: [place] 6:50 PM [facility] REPOSITORY TYPE CODE TESTS RESULT OUT OF REFERENCE UNITS RANGE LAB L501.2450 73-393 U/L High LIPASE 7178 Performed By: #### L501.2450 #### [facility] [address] [place], [address] HISTORY AND PHYSICAL Observed: 03/14/2018 Status: F Source: [place] EXAM 6:07 PM [facility] REPOSITORY [facility] Medical Records Department [address] [place] [address] History and Physical 03/14/18 1751 MR#: [id number] Acct: [id number] Name: HUMA HOROWITZ Rep #: [id number] : 1950 67 From: Danielle Barajas MD PCP: Sal Adams MD Status: ADM IN Location: [address] History and Physical Date of Admission: 03/14/18 Chief Complaint: abdominal pain, nausea/emesis History of Present Illness: Pleasant 67 y/o WF who presents with gallstone pancreatitis. She feels that she has had gallbladder disease for years, has had twinges of pain, but never thought to follow up with this. This pain was severe in onset, beginning at 3 am and awoke patient from sleep. She has had nausea and bouts of dry heaving. She presented to [facility] ED. Work up - WBC normal but with left shift of diff, AST/ALT 915/526, normal alk phos, t bili 1.6, lipase 44020 CT scan - multiple gallstones, GB distention with wall thickening, peripancreatic fat stranding or edema - acute pancreatitis Past Medical History: denies major medical illnesses Past Surgical History: colonoscopy 11 y ago hysterectomy/BSO tonsillectomy excision of soft tissue mass of leg - benign Medications: biotin calcium MVI Magnesium Allergies: Has no known drug allergies Social history: TOB use denies ETOH use denies , lives with spouse Mother had breast cancer, daughter had breast cancer Father had prostate cancer Review of Systems: General - denies fevers Cardiovascular denies chest pain, denies history of heart attack Pulmonary denies shortness of breath, denies coughing up blood Gastrointestinal as per HPI, denies blood in stools, has chronic constipation - bowel movement every day but rabbit pellets - like Neurological denies numbness/weakness of extremities, denies seizures, denies history of stroke Genitourinary denies burning with urination, denies blood in urine Hematological denies spontaneous/prolonged bleeding, denies history of blood transfusions, denies history of deep venous thromboses and/or pulmonary emboli Skin denies open non healing wounds Musculoskeletal denies history of fractures Endocrine denies diabetes Psychological denies hallucinations Physical examination: Vital signs Temp 97.6F HR 73 BP 104/58 RR 18 General WD/WN WF in no apparent distress, alert and oriented, not septic appearing HEENT Normocephalic. EOM intact with sclera clear and no icterus noted. Neck is supple with no jugular venous distention noted. Trachea is midline. Lungs clear to auscultation. normal breath sounds in all lung guzman. No rales/rhonchi/wheezing noted. No labored breathing noted, such as retractions. Heart normal S1 and S2 auscultated. No rubs/clicks/murmurs noted. Abdomen soft and benign. Normal bowel sounds. No abdominal bruits noted. No distention or tympany noted. No masses noted. No hepatosplenomegaly noted. Extremities no calf tenderness noted. No pitting edema noted. Genitourinary/Rectal deferred Skin normal skin integrity. Neurological non focal. Psychological normal affect, patient is calm and appropriate Impression: gallstone pancreatitis cholelithiasis Discussion/Plan: I have discussed the above with the patient. I have explained disease process to patient and what procedures will be required. I have recommended ERCP and laparoscopic cholecystectomy. I have described both procedures to patient. I have counseled the patient as to the risks of the procedure, including but not limited to: infection, bleeding, injury to any blood vessels/nerves, scar tissue, injury to any intrabdominal organs, injury to kidney/ureters, injury to bowel/bladder, injury to the common bile duct/biliary tree, bile leakage, intraabdominal abscess/bleeding, hernias at incisional sites, wound infections, possible open procedure, complications of anesthesia, postoperative pneumonia/cardiac problems/blood clots etc. the patient understands. She agrees to proceed with above, depending upon serum lab test evaluation in the morning, timing of the procedures will be determined. I have answered all questions to the patient s satisfaction and the patient has no further questions. 03/14/181806 <Electronically signed by Danielle Barajas MD> Date Danielle Barajas MD Cosigner Signature: Date (if applicable) CC: Sal Adams MD; Danielle Barajas MD Signed LIPASE Collected: 03/14/2018 Status: F Source: [place] 4:48 PM [facility] REPOSITORY TYPE CODE TESTS RESULT OUT OF REFERENCE UNITS RANGE LAB L501.2450 73-393 U/L High LIPASE 23146 Performed By: #### L501.2450 #### [facility] [address] [place], [address] EMERGENCY DEPARTMENT Observed: 03/14/2018 Status: F Source: [place] SUMMARY 3:36 PM [facility] REPOSITORY [facility] Medical Records Department [address] [place] [address] Emergency Department Summary 03/14/18 1358 MR#: [id number] Acct: [id number] Name: HUMA HOROWITZ Rep #: [id number] : 1950 67 From: Sal James DO PCP: Sal Adams MD Status: REG ER - ER Visit Summary Date of Service: 03/14/18 Chief Complaint: Abdominal pain History of Present Illness: The patient is a 67 F who presents with abdominal pain that began today. Patient states the pain began earlier this morning. Patient states the pain started in her right lower thoracic back and his radiated around to the right upper quadrant. Patient states that she did eat some fatty foods last night before she went to bed. Patient admits to some nausea and vomiting. Patient also admits to some loose stools today. Patient denies any dysuria or hematuria. Patient denies any fevers or chills. Patient denies any chest pain or shortness of breath. Physical Examination: Vital signs are stable. Patient is afebrile. Patient is in no acute distress. Oral mucosa is pink and moist. Neck is supple. Trachea is midline. There is no JVD noted. Heart was regular rate and rhythm. Lungs are clear and equal bilateral. There is good respiratory effort noted. Abdomen is soft. Bowel sounds are normal. There is some tenderness over the right upper quadrant. There is a positive De Leon sign noted. There is no rebound or guarding noted. Cranial nerves II through XII are intact. There are no focal motor or sensory deficits noted. Test Results: CBC was within normal limits. Comprehensive metabolic profile showed an elevated bilirubin of 1.6, ALT was elevated at 526, AST was elevated at 915. Lipase was elevated at 25,303. CT scan of the abdomen and pelvis showed multiple gallstones with distention of the gallbladder. There is questionable wall thickening. There is also inflammation of the pancreas noted. Emergency Department Course and Treatment: Patient was given IV fluids and morphine here. Case was discussed with Dr. Barajas. She will admit the patient to her service. Patient understood and was agreeable with the plan. All questions were answered. Disposition: Admit to hospital Impression: Gallstone pancreatitis This note was generated with Ferevo dictation software. It may contain incorrect words, spelling, and punctuation that were not noted in review of the chart prior to signing ED Disposition - Plan for ED Patient: Disposition: Acute Care Hospital [facility] Chief Complaint: Abd Pain Diagnosis: Acute gallstone pancreatitis Referrals: Sal Adams MD [Primary Care Provider] - What to do if you have Problems For any increased pain, shortness of breath, bleeding, nausea or vomiting, chest pain, or any unexpected problems, contact your Primary Care Provider. Call [facility] ([phone]) or report to the closest Emergency Room. Call 911 if necessary. 03/14/18 1536 <Electronically signed by Sal James DO> Date Sal James DO Cosigner Signature (If Indicated): Date CC: Sal Adams MD CBC W/DIFF, AUTOMATED Collected: 03/14/2018 Status: F Source: [place] 1:05 PM [facility] REPOSITORY TYPE CODE TESTS RESULT OUT OF RANGE REFERENCE UNITS LAB L100.1000 4.4-11.0 K/mm3 Normal WBC 7.1 LAB L100.1200 4.2-5.4 M/mm3 Normal RBC 4.20 LAB L100.1300 12.0-15.0 g/dl Normal HGB 12.6 LAB L100.1400 37-47 % Normal HCT 37.6 LAB L100.1500 81-99 fL Normal MCV 89.5 LAB L100.1600 27.0-32.0 pg Normal MCH 30.0 LAB L100.1700 32-36 g/gl Normal MCHC 33.5 LAB L100.1810 11.6-14.6 % Normal RDW CV 13.6 LAB L100.1820 35.1-43.9 fl High RDW SD 44.2 LAB L100.1900 150-450 K/mm3 Normal PLT 297 LAB L100.2000 6.2-12.0 fl Normal MPV 8.9 LAB L100.2100 47-70 % High NEUT% 82.9 LAB L100.2200 19-41 % Low LY% 11.6 LAB L100.2300 0-10 % Normal MONO% 5.1 LAB L100.2400 0-5 % Normal EO% 0.3 LAB L100.2500 0-1 % Normal BASO% 0.1 LAB L100.2550 0.0-0.9 % Normal IM GRAN % 0.000 Result Comment: IG% - Immature Granulocytes (promyelocytes, myelocytes and metamyelocytes) > 1% indicates that a LEFT SHIFT is Present. LAB L100.2620 2.0-7.7 X10 3/uL Normal Absolute Neut 5.8 LAB L100.2720 0.83-4.51 X10 3/ul Low Absolute Lymph 0.82 Performed By: #### L100.0100 #### [facility] [place], [address] COMPREHENSIVE METABOLIC Collected: 03/14/2018 Status: F Source: [place] [facility] 1:05 PM [facility] REPOSITORY TYPE CODE TESTS RESULT OUT OF RANGE REFERENCE UNITS LAB L501.0100 74-106 mg/dL High GLU 169 Result Comment: Fasting Glucose result greater than or equal to 126 mg/dL suggests DIABETES MELLITUS per A.D.A. criteria. Please note revised GLUCOSE reference range effective 2017. LAB L501.1000 7-18 mg/dL Normal BUN 18 LAB L501.1100 0.55-1.02 mg/dL Normal CREAT,SERUM 0.87 Result Comment: The validity of the calculated GFR AND GFRAA in patients over 70 years has not been determined. Clinical correlation is essential. LAB L501.1110 >60 mL/min Normal EST GFR 69 Result Comment: Non- GFR Calc LAB L501.1115 >60 mL/min Normal EST GFR - AA 84 Result Comment: GFR Calc LAB L501.1255 ml/min Normal Estimated CRCL 51.70 LAB L501.1300 10-20 RATIO High BUN/CRE 20.6 LAB L501.1500 6.4-8. g/dL Normal 2 T PROT 7.5 LAB L501.1800 3.2-5. g/dL Normal 0 ALB 3.7 LAB L501.1950 2.2-4. g/dL Normal 2 GLOB 3.8 LAB L501.2000 0.9-2. RATIO Normal 4 A/G 1.0 LAB L501.2200 8.5-10 mg/dL Normal .1 CA 9.0 LAB L501.4100 15-37 U/L High AST 915 LAB L501.4305 45-117 U/L Normal ALK P 113 LAB L501.4405 13-56 U/L High ALT 526 LAB L501.4600 0.20-1 mg/dL High .00 T BILI 1.60 LAB L501.5300 136-14 mmol/L Normal 5 NA 143 LAB L501.5600 3.5-5. mmol/L Normal 1 K 3.7 LAB L501.5900 98-107 mmol/L Normal CL 105 LAB L501.6100 21.0-3 mmol/L Normal 2.0 CO2 26.0 LAB L501.6200 5-15 Normal GAP 12 Performed By: #### L500.4050, L501.2450 #### [facility] [address] [place], [address] LIPASE Collected: 03/14/2018 Status: F Source: [place] 1:05 PM [facility] REPOSITORY TYPE CODE TESTS RESULT OUT OF REFERENCE UNITS RANGE LAB L501.2450 73-393 U/L High [place]IP[place] 81445 Performed By: #### L500.4050, L501.2450 #### [facility] [address] [place], [address] ABDOMEN/PELVIS WITHOUT Observed: 03/14/2018 Status: F Source: [place] CONT 12:53 PM [facility] REPOSITORY [facility] Imaging Services [address] [place] [address] Abdomen/Pelvis without Cont MR#: [id number] Acct: [id number] Name: HUMA HOROWITZ Rep #: [id number] : 1950 F 67 From: Benjamín Aguillon DO PCP: Sal Adams MD Status: REG ER Study: Abdomen/Pelvis without Cont Date of Exam: 03/14/18 Exam# [id number] Ordering Dr: Sal James DO STUDY: CT ABDOMEN AND PELVIS WITHOUT CONTRAST REASON FOR EXAM: Female, 67 years old. Right upper quadrant pain with nausea and vomiting RADIATION DOSAGE (If Supplied By Facility): CTDIvol = ( 6.04 ) mGy, DLP = ( 267.26 ) mGycm TECHNIQUE: Transaxial images were obtained from the dome of the diaphragm to the symphysis pubis without oral contrast, and without intravenous contrast. Sagittal and coronal images were reconstructed. Individualized dose optimization techniques were used for this CT. COMPARISON: None. FINDINGS: The visualized lung bases are unremarkable. The visualized portions of the heart are within normal limits. Normal liver. There are multiple gallstones. Prominent distention of the gallbladder with questionable wall thickening. Normal spleen. There is questionable peripancreatic fat stranding or edema suggesting acute pancreatitis. Normal bilateral adrenal glands. Normal right kidney. Normal left kidney. Normal visualized stomach. Normal small intestine. There are multiple colonic diverticula consistent with diverticulosis. The appendix is visualized and appears normal. Inflammation and edema in the right pericolic gutter near the hepatic flexure. Normal abdominal aorta. Normal inferior vena cava. Normal retroperitoneum. Normal urinary bladder. There is absence of the uterus consistent with a prior hysterectomy. Normal abdominal wall. There are diffuse degenerative changes of the visualized lumbar spine. CT/Abdomen/Pelvis without Cont IMPRESSION: Suspicion for acute pancreatitis as detailed above. Multiple gallstones with questionable gallbladder wall thickening and pericholecystic fluid. Inflammation in the mesentery in the region of the hepatic flexure and within the right paracolic gutter Electronically Signed: Benjamín Aguillon DO at 14:42 EDT Tel , Service support , CC: Sal James DO; Sal Adams MD Veterinary Poultry Inspector: Signed ALLERGIES ALLERGIES DATE TYPE / CODE NAME / CODE REACTION SEVERITY SOURCE 05/04/2016 Drug Sulfa Unknown Unknown [facility] Allergy/4160 (Sulfonamide Hospital 19767(SNOMED Antibiotics)/ Repository CT) [id number](RX NORM) ENCOUNTERS ENCOUNTERS ADMIT/DISCHARGE ACCOUNT ADMITTING ENCOUNTER LOCATION SOURCE NUMBER CLASS 07/01/2018 [id number] Ambulatory [facility] ing:OPBD Repository 03/24/2018/03/29/20 [id number] Ambulatory [address] Repository 03/15/2018 [id number] Ambulatory [facility] Repository 03/14/2018/08/28 [id number] Danielle Barajas Inpatient Jonelle Leiter 18 Encounter [facility] ing:[id number]: Repository [id number]: 1 PAYERS PAYERS ENCOUNTER GUARANTOR PAYER SUBSCRIBER SOURCE 07/01/2018 HUMA Alegre Primary HUMA Sal [id number] Insurance:MEDICARE HAMMERDOB: Community [id number] Repository [id number]: 330 [id number] [phone] () Date:2018-05-05 07/01/2018 Secondary HUMA Alegre Jonelle Insurance:AARPPolicy HAMMERDOB: [facility] Number: [id number] Hospital [id number] Repository Date:[id number] [address], [place] [address]TP: 07/01/2018 Tertiary NOT GIVENUNK Jonelle Insurance:SELF PAY [facility] Number: Effective Repository Date:2018-05-05 03/15/2018 Ney Luevano Primary HUMA Alegre Leiter [id number] Insurance:MEDICARE HAMMERDOB: Community MEENU PART A olicy [id number] [facility] [place] Number: Repository [id number]: 330 [id number] [phone] () Date:2018-03-14 03/15/2018 Secondary HUMA Alegre Leiter Insurance:AARPPolicy HAMMERDOB: Community Number: [id number] Hospital [id number] Repository Date:4561-51-33AR [address], [place] [address]MI: 03/15/2018 Tertiary NOT GIVENUNK Jonelle Insurance:SELF PAY [facility] Number: Effective Repository Date:2018-03-15 03/14/2018 Ney Luevano Primary HUMA Alegre Leiter [id number] Insurance:MEDICARE HAMMERDOB: Community MEENU PART A [facility] [id number] [place] Number: Repository [id number]: 330 [id number] [phone] (HP) Date:2018-03-14 03/14/2018 Secondary HUMA Sal Insurance:Farhat ROSADO: Community Number: [id number] Hospital [id number] Repository Date:[id number] [address], [place] [address]HO: 03/14/2018 Tertiary NOT GIVENJHON Sal Insurance:SELF PAY [facility] Number: Effective Repository Date:2018-03-14
== END ==
PROVIDERS: Family Provider Family Medicine; PCP Family Medicine; Referring Provider Family Medicine; Visit Provider Family Medicine
DX: Z12.31 Encounter for screening mammogram for malignant neoplasm of breast (principal); Z78.0 Asymptomatic menopausal state; M85.80 Other specified disorders of bone density and structure, unspecified site
CPT/HCPCS: 77063; 77067; 77080

== ENCOUNTER → 2018-08-24 08:35 | Outpatient (CLI) | payer MEDICARE, OTHER, SELFPAY ==
[2018-08-24 10:15] LABS: 24HR. Urine Creatinine 0.74 g/24 HR (0.70-1.90)
[2018-08-24 10:28] LABS: Protein, Urine (Random) 10.9 mg/dL (<11.9); Protein:Creat Ratio 218 mg/g CRE (0-200)
[2018-08-24 10:42] LABS: PTHIN 53.4 pg/mL (18.4-80.1)
[2018-08-24 10:48] LABS: ALB/GLOB Ratio 0.9 RATIO (0.9-2.4); AST(SGOT) 21 U/L (15-37); Alanine Aminotransfer ALT/SGPT 23 U/L (13-56); Albumin, Serum 3.7 g/dL (3.2-5.0); Alkaline Phosphatase 69 U/L (45-117); Anion Gap 7 (5-15); BUN 16 mg/dL (7-18); BUN/Creat Ratio 20.8 RATIO (10-20); Calcium,Total 8.7 mg/dL (8.5-10.1); Chloride 105 mmol/L (98-107); Creatinine, Serum 0.77 mg/dL (0.55-1.02); EST Glomerular Filtration Rate 80 mL/min (>60); Est Glom Filt Rate - Afr Amer 96 mL/min (>60); Glucose 84 mg/dL (74-106); Magnesium 2.3 mg/dL (1.6-2.6); Potassium 3.4 mmol/L (3.5-5.1); Protein, Total 7.7 g/dL (6.4-8.2); Sodium Level 138 mmol/L (136-145); Thyroid Stim Hormone (TSH) 4.07 uIU/mL (0.358-3.74)
[2018-08-26 09:49] LABS: 24HR. UA Prot. Total Volume 1850 mL
[2018-08-26 09:50] LABS: Urine Protein (24 Hour) < 6.0 mg/dL (<11.9)
== END ==
PROVIDERS: Family Provider Family Medicine; PCP Family Medicine; Visit Provider Family Medicine
DX: M85.80 Other specified disorders of bone density and structure, unspecified site (principal)
CPT/HCPCS: 36415; 80053; 81050; 82306; 82570; 83735; 83970; 84156; 84443

== ENCOUNTER → 2018-08-26 08:29 | Outpatient (CLI) | payer MEDICARE, OTHER, SELFPAY ==
[2018-08-26 10:56] LABS: 24HR UR TOTAL VOLUME 1700 ml; Calcium Urine pH Range 2; Urine Calcium (Random) < 5.0 (Not Estab.)
== END ==
PROVIDERS: Family Provider Family Medicine; PCP Family Medicine; Visit Provider Family Medicine
DX: M85.80 Other specified disorders of bone density and structure, unspecified site (principal)
CPT/HCPCS: 81050; 82340

== ENCOUNTER → 2018-09-28 18:25 | Outpatient (CLI) | payer MEDICARE, OTHER, SELFPAY ==
[2018-03-15 13:14] VITALS: BMI 19.3
== END ==
PROVIDERS: Family Provider Family Medicine; PCP Family Medicine; Referring Provider Family Medicine; Visit Provider Family Medicine
DX: R35.0 Frequency of micturition (principal)
CPT/HCPCS: 87086; 87088; 87186

== ENCOUNTER → 2019-03-22 | Outpatient (CLI) | payer MEDICARE, OTHER, SELFPAY ==
[2018-03-15 13:14] VITALS: BMI 19.3
--- NOTE | 2019-03-22 11:44 | RAD_ITS ---
STUDY: X-RAY CHEST REASON FOR EXAM: Female, 68 years old. Shortness of breath TECHNIQUE: PA and lateral views of the chest COMPARISON: None. FINDINGS: The lungs are clear. There are no pleural effusions. There is no pneumothorax. The heart is normal in size. The visualized osseous structures are within normal limits. RAD/Chest PA and Lateral IMPRESSION: No acute thoracic pathology. Electronically Signed: Ayad Miles, at 17:31 EDT Tel , Service support ,
[2019-03-22 13:55] LABS: Absolute Lymphocyte Count 1.89 X10^3/uL (0.83-4.51); Basophil# 0.03 X10^3/uL; Basophil% 0.6 % (0-1); Eosinophil# 0.08 X10^3/uL; Eosinophils% 1.5 % (0-5); Hematocrit 37.8 % (37-47); Hemoglobin 12.7 g/dL (12.0-15.0); Lymphocyte # 1.89 X10^3/ul (4.0); Lymphocyte % 35.5 % (19-41); Mean Corp Hgb Conc 33.6 g/dL (32-36); Mean Corpuscular Hgb 30.7 pg (27.0-32.0); Mean Corpuscular Volume 91.3 fL (81-99); Mean Platelet Vol. 9.3 fl (6.2-12.0); Monocyte# 0.32 X10^3/uL; NRBC Flagged by Analyzer 0 % (0-5); Neutrophil # 2.99 X10^3/uL (2.7-7.7); Platelet Count 325 K/mm3 (150-450); RBC Distribution Width CV 13.2 % (11.6-14.6); RBC Distribution Width SD 44.4 fl (35.1-43.9); Red Blood Count 4.14 M/mm3 (4.2-5.4); White Blood Count 5.3 K/mm3 (4.4-11.0)
[2019-03-22 14:03] LABS: D-Dimer Quantitative (DVT/PE) 0.61 FEU/ug/m (0.27-0.49)
[2019-03-22 14:04] LABS: AST(SGOT) 23 U/L (15-37); Alanine Aminotransfer ALT/SGPT 24 U/L (13-56); Albumin, Serum 3.8 g/dL (3.2-5.0); Alkaline Phosphatase 72 U/L (45-117); Anion Gap 6 (5-15); BUN 16 mg/dL (7-18); BUN/Creat Ratio 18.5 RATIO (10-20); Chloride 104 mmol/L (98-107); Creatinine, Serum 0.87 mg/dL (0.55-1.02); EST Glomerular Filtration Rate 70 mL/min (>60); Est Glom Filt Rate - Afr Amer 84 mL/min (>60); Glucose 90 mg/dL (74-106); Potassium 3.5 mmol/L (3.5-5.1); Protein, Total 7.8 g/dL (6.4-8.2); Sodium Level 141 mmol/L (136-145)
[2019-03-26 14:17] LABS: Antithrombin 3 Function 124 % (75-135)
== END | disposition home or self-care (01) ==
PROVIDERS: Family Provider Family Medicine; PCP Family Medicine; Referring Provider Family Medicine; Visit Provider Family Medicine
DX: R07.89 Other chest pain (principal); Z83.2 Family history of diseases of the blood and blood-forming organs and certain disorders involving the immune mechanism
CPT/HCPCS: 71046; 80053; 81241; 85025; 85300; 85379

== ENCOUNTER → 2019-03-23 | Outpatient (CLI) | payer MEDICARE, OTHER, SELFPAY ==
--- NOTE | 2019-03-23 08:29 | CT_ITS ---
STUDY: CTA CHEST REASON FOR EXAM: Female, 68 years old. Chest heaviness RADIATION DOSAGE (If Supplied By Facility): CTDIvol = ( 5.08 ) mGy, DLP = ( 132.22 ) mGycm TECHNIQUE: The examination was performed with the intravenous administration of 100 IV Isovue 370. Post-processing of the angiographic images was performed, with multiplanar reformation and 3D reconstruction. Individualized dose optimization techniques were used for this CT. COMPARISON: None. FINDINGS: Normal enhancement of the main pulmonary artery and right and left pulmonary arteries. Normal enhancement of the bilateral peripheral pulmonary arteries. There is no demonstrated pulmonary embolism. Normal thoracic aorta and visualized great vessels. There is no demonstrated aortic dissection. Normal heart and pericardium. Normal mediastinum. Normal hilar regions. Normal visualized trachea and bronchi. The lungs are well expanded. Normal pulmonary parenchyma. Normal pleura. Normal chest wall structures. Normal osseous structures. Normal visualized upper abdomen. CT/CTA Chest W/WO Contrast IMPRESSION: Normal CTA chest examination, without a demonstrated pulmonary embolism or arterial dissection. Electronically Signed: Ayad Miles, at 17:03 EDT Tel , Service support ,
== END | disposition home or self-care (01) ==
PROVIDERS: Family Provider Family Medicine; PCP Family Medicine; Referring Provider Family Medicine; Visit Provider Family Medicine
DX: R07.89 Other chest pain (principal)
CPT/HCPCS: 71275; Q9967

== ENCOUNTER → 2019-05-25 | Outpatient (CLI) | payer MEDICARE, OTHER, SELFPAY ==
[2018-03-15 13:14] VITALS: BMI 19.3
--- NOTE | 2019-05-25 11:36 | RAD_ITS ---
STUDY: X-RAY LEFT FOOT, THERE THROUGH FIFTH TOES REASON FOR EXAM: Female, 68 years old. Pain following injury. TECHNIQUE: 3 view(s) of the toe were obtained. COMPARISON: None. FINDINGS: Normal visualized metatarsus. Normal metatarsophalangeal (M.T.P) joint. Normal interphalangeal joints. Nondisplaced oblique fracture of the proximal phalanx of the third toe. Soft tissue swelling. RAD/Toe(s) Min 2 Views IMPRESSION: Nondisplaced oblique fracture of the proximal fundus of the third toe with overlying soft tissue swelling. Electronically Signed: Theodore Hunter, at 12:27 EST , Service support ,
== END | disposition home or self-care (01) ==
LOC: MTRAD 11:35
PROVIDERS: Family Provider Family Medicine; PCP Family Medicine; Referring Provider Family Medicine; Visit Provider Family Medicine
DX: S99.929A Unspecified injury of unspecified foot, initial encounter (principal)
CPT/HCPCS: 73660

== ENCOUNTER → 2020-10-11 09:15 | Outpatient (CLI) | payer MEDICARE, OTHER, SELFPAY ==
[2018-03-15 13:14] VITALS: BMI 19.3
[2020-10-11 10:21] LABS: Absolute Lymphocyte Count 1.66 X10^3/uL (0.83-4.51); Absolute Neutrophil Count 2.4 X10^3/uL (2.0-7.7); Basophil# 0.04 X10^3/uL; Basophil% 0.9 % (0-1); Eosinophil# 0.11 X10^3/uL; Eosinophils% 2.5 % (0-5); Hematocrit 39.2 % (37-47); Hemoglobin 12.8 g/dL (12.0-15.0); Lymphocyte # 1.66 X10^3/ul (4.0); Lymphocyte % 37.1 % (19-41); Mean Corp Hgb Conc 32.7 g/dL (32-36); Mean Corpuscular Hgb 29.6 pg (27.0-32.0); Mean Corpuscular Volume 90.5 fL (81-99); Mean Platelet Vol. 9.5 fl (6.2-12.0); Monocyte# 0.25 X10^3/uL; Monocyte% 5.6 % (0-10); NRBC Flagged by Analyzer 0 % (0-5); Neutrophil # 2.41 X10^3/uL (2.7-7.7); Neutrophil % 53.7 % (47-70); Platelet Count 370 K/mm3 (150-450); RBC Distribution Width CV 13.3 % (11.6-14.6); RBC Distribution Width SD 45.1 fl (35.1-43.9); Red Blood Count 4.33 M/mm3 (4.2-5.4); White Blood Count 4.5 K/mm3 (4.4-11.0)
[2020-10-11 11:04] LABS: ALB/GLOB Ratio 0.9 RATIO (0.9-2.4); AST(SGOT) 21 U/L (15-37); Alanine Aminotransfer ALT/SGPT 23 U/L (13-56); Albumin, Serum 3.9 g/dL (3.2-5.0); Alkaline Phosphatase 82 U/L (45-117); Anion Gap 4 (5-15); BUN 16 mg/dL (7-18); BUN/Creat Ratio 17.7 RATIO (10-20); Calcium,Total 9.6 mg/dL (8.5-10.1); Chloride 105 mmol/L (98-107); Creatinine, Serum 0.91 mg/dL (0.55-1.02); EST Glomerular Filtration Rate 66 mL/min (>60); Est Glom Filt Rate - Afr Amer 79 mL/min (>60); Ferritin 61 ng/mL (8-252); Globulin 4.2 g/dL (2.2-4.2); Glucose 87 mg/dL (74-106); Potassium 3.3 mmol/L (3.5-5.1); Protein, Total 8.1 g/dL (6.4-8.2); Sodium Level 138 mmol/L (136-145); T4 Total, Thyroxin 9.5 ug/dL (4.8-13.9)
[2020-10-11 16:28] LABS: T3 Total - Triiodothyronine 0.82 ng/mL (0.6-1.81)
[2020-10-12 05:09] LABS: Thyroid Peroxidase AB 11 IU/mL (0-34)
== END ==
PROVIDERS: PCP Family Medicine; Referring Provider Dermatology Pediatric Dermatology; Visit Provider Dermatology Pediatric Dermatology
DX: D64.9 Anemia, unspecified (principal); L64.8 Other androgenic alopecia; L92.0 Granuloma annulare
CPT/HCPCS: 36415; 80053; 82728; 84436; 84480; 85025; 86038; 86376

== ENCOUNTER → 2022-01-24 | Outpatient (CLI) | payer MEDICARE, SELFPAY ==
[2022-01-24 10:39] LABS: Anion Gap 4 (5-15); BUN 14 mg/dL (7-18); BUN/Creat Ratio 16.7 RATIO (10-20); Calcium,Total 9.4 mg/dL (8.5-10.1); Chloride 105 mmol/L (98-107); Cholesterol 220 mg/dL (200); Creatinine, Serum 0.84 mg/dL (0.55-1.02); EST Glomerular Filtration Rate 72 mL/min (>60); Est Glom Filt Rate - Afr Amer 87 mL/min (>60); Glucose 95 mg/dL (74-106); High Density Lipoprotein 68 mg/dL; Potassium 3.8 mmol/L (3.5-5.1); Sodium Level 139 mmol/L (136-145); Triglycerides 170 mg/dL; Very Low Density Lipoprotein 34 mg/dL (5-40)
[2022-01-24 17:34] LABS: Vitamin D,25 Hydroxy 49.2 ng/mL
== END | disposition home or self-care (01) ==
PROVIDERS: PCP Family Medicine; Visit Provider Family Medicine
DX: Z00.00 Encounter for general adult medical examination without abnormal findings (principal)
CPT/HCPCS: 36415; 80048; 80061; 82306

== ENCOUNTER → 2022-02-25 | Outpatient (CLI) | payer MEDICARE, SELFPAY | END | disposition home or self-care (01) | PROVIDERS: PCP Family Medicine; Referring Provider Family Medicine; Visit Provider Family Medicine | DX: R35.0 Frequency of micturition (principal) | CPT/HCPCS: 87086; 87088 ==

== ENCOUNTER 2022-03-02 11:32 | Emergency (ER) | payer MEDICARE, SELFPAY ==
[2022-03-02 11:34] VITALS: BP 128/86; PULSE 92; RESP 14; TEMP 36.4; O2SAT 99; BMI 23.3
--- NOTE | 2022-03-02 11:48 | EKG12_ITS ---
Test Reason : sob Blood Pressure : / mmHG Vent. Rate : 075 BPM Atrial Rate : 075 BPM P-R Int : 174 ms QRS Dur : 082 ms QT Int : 388 ms P-R-T Axes : 068 064 042 degrees QTc Int : 433 ms Normal sinus rhythm Normal ECG Confirmed by RONNY KULKARNI, ADRIENNE ([id number]), offline editor YANELI TORIBIO ([id number]) on 03/03/2022 1:59:13 PM Referred By: Confirmed By:ADRIENNE JEFFERSON MD
--- NOTE | 2022-03-02 11:48 | RAD_ITS ---
STUDY: X-RAY CHEST REASON FOR EXAM: Female, 71 years old. Chest pain/pressure TECHNIQUE: Single AP portable view of the chest. COMPARISON: 03/22/2019 FINDINGS: EKG leads overlie the chest The lungs are clear and expanded. There is no demonstrated pleural abnormality. Normal size heart. Normal mediastinum and ann. Normal visualized pulmonary arteries. Normal visualized aortic arch and descending thoracic aorta. Normal visualized thoracic spine. Normal visualized ribs, clavicles, and shoulders. There is no demonstrated abnormality of the visualized soft tissue structures of the upper abdomen. RAD/Chest 1 View (Portable) IMPRESSION: Normal x-ray examination of the chest. Electronically Signed: Lyndon Vanegas MD at 12:45 EDT ,
--- NOTE | 2022-03-02 11:49 | EX.ED.DYSGE1 ---
HPI History of Present Illness Chief Complaint: Chest Pain Informant: patient Onset/Context/Timing Onset: Weeks Context: Gradual Onset Current Severity: Mild Maximum Severity: Mild Narrative Narrative: Patient presents with shortness of breath and chest congestion. She was initially diagnosed with COVID on February 09. She received Paxil of it. She had a negative COVID test following this treatment but then tested positive for COVID again on February 18. She has since had 2 negative COVID test. She presents with chest congestion and a slight heaviness that is been present since February 18. [facility] and due to concern for possible blood clot was sent to the emergency room. She does report increased shortness of breath with exertion. PFSH PFSH Medical History no medical history no medical history Home Medications biotin 1,000 mcg chewable tablet 1,000 mcg PO DAILY supplement 03/14/18 [History Last Taken Unknown] calcium carbonate 500 mg-vitamin D3 15 mcg (600 unit) tablet 1 tab PO DAILY supplement 03/14/18 [History Last Taken Unknown] magnesium oxide 400 mg PO DAILY supplement 03/14/18 [History Last Taken Unknown] multivitamin (Multiple Vitamins tablet) 1 tab PO DAILY supplement 03/14/18 [History Last Taken Unknown] hydrocodone-acetaminophen 5-325mg 5mg-325mg 1 ea PO Q6H PRN PRN Pain 5 days #20 tabs 03/15/18 [Rx Last Taken Unknown] Allergy/AdvReac Type Severity Reaction Status Date / Time Sulfa (Sulfonamide Allergy Unknown Verified 03/02/22 11:34 Antibiotics) Social History Smoking Status: Never smoker ROS ROS ED Constitutional Constitutional ED: Denies chills or fever(s) Eyes Eyes: Denies change in vision or discharge from eye(s) ENT ENT ED: Denies discharge from eye(s), rhinorrhea or sore throat Cardiovascular Cardiovascular: Reports chest pain; Denies palpitations Respiratory/Chest Respiratory/Chest: Reports cough and dyspnea Gastrointestinal Gastrointestinal: Denies abdominal pain, diarrhea, nausea or vomiting Genitourinary Genitourinary ED: Denies difficulty urinating or dysuria Musculoskeletal Musculoskeletal: Denies back pain or extremity pain Integumentary Denies Abrasions or rash Neurologic Neurologic: Denies headache(s) or weakness Psychiatric Psychiatric: Denies anxiety or depression Endocrine Endocrinology: Denies polydipsia or polyuria Allergic/Immunologic Allergic/Immunologic ED: Denies lip swelling or urticaria EXAM Physical Exam Const Vital Signs: 03/02/22 11:34 Temperature 97.6 F L Temperature Source Temporal Pulse Rate 92 Respiratory Rate 14 Blood Pressure 128/86 H Blood Pressure Mean 100 Pulse Ox 99 Oxygen Delivery Method Room Air Positive well nourished and well developed General Appearance ED: well developed HEENT Reports normocephalic and head/scalp atraumatic Eyes PERRL and EOMs intact bilaterally Neck supple Chest Wall inspection of chest normal and palpation of chest normal Resp normal respiratory effort and clear to auscultation bilaterally Cardio regular rate and regular rhythm GI normal to inspection, nondistended, normoactive bowel sounds Palpation: soft Back/Spine no CVA tenderness Extremity normal to inspection Neuro oriented x3 and no sensory deficits noted Sensorium / Orientation: alert Motor Exam: strength 5/5 throughout Psych mental status grossly normal Skin no rashes or lesions noted MDM MDM MDM Narrative Medical decision making narrative: Patient placed on site monitor. EKG, chest x-ray, lab work obtained. Lab Data Attestation: I reviewed the patient's lab results. Labs: Laboratory Results - last 24 hr 03/02/22 03/02/22 03/02/22 12:01 12:01 12:01 WBC 5.6 RBC 4.18 L Hgb 12.6 Hct 37.5 MCV 89.7 MCH 30.1 MCHC 33.6 RDW Std Deviation 43.0 RDW Coeff of Adalberto 13.1 Plt Count 394 MPV 8.5 Immature Gran % (Auto) 0.700 Neut % (Auto) 55.8 Lymph % (Auto) 34.4 [place] % (Auto) 6.4 Eos % (Auto) 2.0 Baso % (Auto) 0.7 Absolute Neuts (auto) 3.1 Absolute Lymphs (auto) 1.93 Nucleated RBC % 0 D-Dimer Quant (PE/DVT) 0.79 H* Sodium 139 Potassium 4.0 Chloride 105 Carbon Dioxide 26.0 Anion Gap 8 BUN 12 Creatinine 0.78 Estim Creat Clear Calc 40.07 Est GFR (MDRD) Af Amer 93 Est GFR (MDRD) Non-Af 77 BUN/Creatinine Ratio 15.3 Glucose 110 H Calcium 9.2 Troponin I High Sens < 3 L Radiography Chest X-Ray - ED: 1 View, Read by ED Physician, Normal, Heart, Lungs and Mediastinum Diagnostic Testing: Clinical Impression(s) from Imaging Studies Chest X-Ray 03/02/22 11:48 IMPRESSION: Normal x-ray examination of the chest. Electronically Signed: Lyndon Vanegas MD at 12:45 EDT Reading Location ID and State: [facility] / [place] , Service support , Chest CTA 03/02/22 12:52 IMPRESSION: No demonstrated PE, or thoracic aortic aneurysm or dissection No acute pulmonary process, evidence of chronic bronchitis. No suspicious adenopathy Electronically Signed: Lyndon Vanegas MD at 14:02 EDT , EKG Initial EKG: Attestation: I personally reviewed and interpreted this EKG as follows: Interpretation: Sinus Rhythm (Sinus at 75 with no acute ischemia.) Treatment and Re-Evaluation Narrative: CBC and chemistry studies unremarkable. Troponin less than 3. D-dimer slightly elevated at 0.79. Chest x-ray per my interpretation reveals no focal infiltrate. Radiologist interpretation is reviewed. EKG reveals no ischemia. CTA of the chest is obtained and is normal. No evidence of PE or infiltrate. Patient be discharged to home with outpatient follow-up. She is reassured with these findings. Discharge Plan Triage Chief Complaint: Chest Pain ED Provider: Swetha Simpson Dx/Rx/DC Orders Clinical Impression: Chest pain, SOB (shortness of breath) on exertion Instructions: ED Chest Pain, Uncertain Cause, ED Dyspnea Prescriptions: No Action multivitamin [Multiple Vitamins] 1 EACH tablet 1 tab PO DAILY biotin 1,000 MCG Tab.Chew 1,000 mcg PO DAILY calcium carbonate-vitamin D3 1 EACH tablet 1 tab PO DAILY magnesium oxide 400 MG tablet 400 mg PO DAILY hydrocodone-acetaminophen 1 EACH tablet 1 ea PO Q6H PRN PRN (Reason: Pain) 5 Days Qty: 20 0RF Primary Care Provider: Sal Adams Referrals: Sal Adams MD [Primary Care Provider] - 1 Week if not improving Disposition Disposition: Home, Self Care
[2022-03-02 12:12] LABS: Absolute Lymphocyte Count 1.93 X10^3/uL (0.83-4.51); Absolute Neutrophil Count 3.1 X10^3/uL (2.0-7.7); Basophil# 0.04 X10^3/uL; Basophil% 0.7 % (0-1); Eosinophil# 0.11 X10^3/uL; Hematocrit 37.5 % (37-47); Hemoglobin 12.6 g/dL (12.0-15.0); Lymphocyte # 1.93 X10^3/ul (0.83-4.51); Lymphocyte % 34.4 % (19-41); Mean Corp Hgb Conc 33.6 g/dL (32-36); Mean Corpuscular Hgb 30.1 pg (27.0-32.0); Mean Corpuscular Volume 89.7 fL (81-99); Mean Platelet Vol. 8.5 fl (6.2-12.0); Monocyte# 0.36 X10^3/uL; Monocyte% 6.4 % (0-10); NRBC Flagged by Analyzer 0 % (0-5); Neutrophil # 3.13 X10^3/uL (2.7-7.7); Neutrophil % 55.8 % (47-70); Platelet Count 394 K/mm3 (150-450); RBC Distribution Width CV 13.1 % (11.6-14.6); Red Blood Count 4.18 M/mm3 (4.2-5.4); White Blood Count 5.6 K/mm3 (4.4-11.0)
[2022-03-02 12:26] LABS: D-Dimer Quantitative (DVT/PE) 0.79 FEU/ug/m (0.27-0.49)
[2022-03-02 12:27] LABS: Anion Gap 8 (5-15); BUN 12 mg/dL (7-18); BUN/Creat Ratio 15.3 RATIO (10-20); Calcium,Total 9.2 mg/dL (8.5-10.1); Chloride 105 mmol/L (98-107); Creatinine, Serum 0.78 mg/dL (0.55-1.02); EST Glomerular Filtration Rate 77 mL/min (>60); Est Glom Filt Rate - Afr Amer 93 mL/min (>60); Estimated Creatinine Clearance 40.07 ml/min; Glucose 110 mg/dL (74-106); Sodium Level 139 mmol/L (136-145); Troponin-I HS < 3 pg/mL (3.0-54.0)
--- NOTE | 2022-03-02 12:52 | CT_ITS ---
STUDY: CTA CHEST REASON FOR EXAM: Female, 71 years old. Atypical chest pain, breath, elevated d-dimer RADIATION DOSAGE (If Supplied By Facility): CTDIvol = ( 4.25 ) mGy, DLP = ( 127.94 ) mGycm TECHNIQUE: The examination was performed with the intravenous administration of IV 100mL Isovue-370. Post-processing of the angiographic images was performed, with multiplanar reformation and 3D reconstruction. Individualized dose optimization techniques were used for this CT. COMPARISON: 03/23/2019 FINDINGS: Normal enhancement of the main pulmonary artery and right and left pulmonary arteries. Normal enhancement of the bilateral peripheral pulmonary arteries. There is no demonstrated pulmonary embolism. Normal thoracic aorta and visualized great vessels. There is no demonstrated aortic dissection. Normal heart and pericardium. No calcified coronary vessels noted Normal mediastinum. Normal hilar regions. There is peribronchial thickening. The lungs are well expanded. Normal pulmonary parenchyma. Normal pleura. Normal chest wall structures. There are degenerative changes of thoracic spine. Normal visualized upper abdomen. CT/CTA Chest W/WO Contrast IMPRESSION: No demonstrated PE, or thoracic aortic aneurysm or dissection No acute pulmonary process, evidence of chronic bronchitis. No suspicious adenopathy Electronically Signed: Lyndon Vanegas MD at 14:02 EDT ,
== END 2022-03-02 15:28 | disposition home or self-care (01) ==
PROVIDERS: Emergency Provider Emergency Medicine; PCP Family Medicine; Visit Provider Emergency Medicine
DX: R07.9 Chest pain, unspecified (principal); R06.02 Shortness of breath; Z86.16 Personal history of COVID-19
CPT/HCPCS: 71045; 71275; 80048; 84484; 85025; 85379; 93005; 99283; Q9967; A4216

== ENCOUNTER → 2022-04-01 | Outpatient (CLI) | payer MEDICARE, SELFPAY ==
--- NOTE | 2022-04-01 09:32 | BI_ITS ---
MAMMOGRAPHY - BILATERAL SCREENING REASON FOR EXAM: Female, 71 years old. Routine annual screening examination. PERTINENT HISTORY: Daughter with breast cancer. Mother with breast cancer. TECHNIQUE: Digital bilateral breast jovany (3D mammographic acquisition) in the CC and MLO projections. 2-D mediolateral oblique (MLO) and craniocaudad (CC) views of both breasts were obtained. CAD: Full Field Digital Mammography with Computer Added Detection was performed. COMPARISON: Comparison is made with prior study dated 07/01/2018 and 11/26/2016. FINDINGS: Breast Composition: There are scattered areas of fibroglandular density. There are no dominant masses or suspicious calcifications. Stable small benign appearing bilateral axillary lymph nodes. No other significant abnormalities are identified. There has been no significant change since the prior study. BI/SCRN MAMM (CAD)W/JOVANY BILAT IMPRESSION: Stable bilateral screening mammogram. Yearly follow-up mammogram recommended. (A) ASSESSMENT CATEGORY: BIRADS Category 2: Benign. A letter regarding these results will be sent to the patient by the facility within 30 days. Approximately 10% of breast cancers are not detected by mammography. A normal mammogram should not delay biopsy of a clinically suspicious abnormality. [id number] Electronically Signed: Theodore Hunter MD at 13:06 EDT ,
--- NOTE | 2022-04-01 09:36 | BD_ITS ---
STUDY: DUAL ENERGY X-RAY ABSORPTIOMETRY / DXA REASON FOR EXAM: Female, 71 years old. Z000. Patient is postmenopausal. TECHNIQUE: Bone Mineral Density (BMD) measurements of lumbar spine and bilateral hips were obtained. COMPARISON: Comparison is made with prior study dated 07/01/2018. FINDINGS: Lumbar Spine (L1-L4): g/cm2 (0.869) / T-score (-1.6) / Z-score (0.5) Findings are suggestive of osteopenia with a moderate fracture risk. Left Femur Total: g/cm2 (0.773) / T-score (-1.4) / Z-score (0.1) Left Femoral Neck: g/cm2 (0.602) / T-score (-2.2) / Z-score (-0.5) Right Femur Total: g/cm2 (0.742) / T-score (-1.6) / Z-score (-0.2) Right Femoral Neck: g/cm2 (0.564) / T-score (-2.6) / Z-score (-0.8) The T-Scores on the most recent prior examination were: Lumbar Spine (L1-L4): There has been worsening of bone density since the previous examination. Left Femur Total: which represents an improvement of 5.1%. Right Femur Total: which represents an improvement of 1.7%. BD/Dexa Bone Density Study IMPRESSION: The patient is considered osteoporotic as outlined below according to World [employer] Organization (WHO) criteria with a high fracture risk. There has been worsening of bone density since the previous examination. Reference Information: The T-score is the number of standard deviations above or below the standard which is normal for young adults at their peak bone mineral density. The World Health Organization (WHO) interprets the T-scores as follows: Above -1 Normal bone density Between -1 and -2.5 Osteopenia Equal to / or below -2.5 Osteoporosis As a practical clinical guideline, osteopenia may be graded as follows: Mild -1 through -1.5 Moderate -1.6 through -2.0 Severe -2.1 through -2.4 The Z-score is the number of standard deviations above or below age-matched controls. A Z-score of less than -1.5 would be considered abnormal. References: 1. NIH Osteoporosis and Related Bone Diseases www osteo.org 2. International Society for Clinical Densitometry www iscd.org 3. National Osteoporosis Foundation www nof.org Electronically Signed: Theodore Hunter MD at 14:44 EDT ,
== END | disposition home or self-care (01) ==
LOC: OPBD 09:27
PROVIDERS: PCP Family Medicine; Referring Provider Family Medicine; Visit Provider Family Medicine
DX: M81.0 Age-related osteoporosis without current pathological fracture (principal); Z12.31 Encounter for screening mammogram for malignant neoplasm of breast
CPT/HCPCS: 77063; 77067; 77080

== ENCOUNTER → 2023-03-04 | Outpatient (CLI) | payer MEDICARE, SELFPAY ==
[2023-03-04 10:21] LABS: Absolute Lymphocyte Count 1.65 X10^3/uL (0.83-4.51); Absolute Neutrophil Count 2.7 X10^3/uL (2.0-7.7); Basophil# 0.02 X10^3/uL; Basophil% 0.4 % (0-1); Eosinophil# 0.09 X10^3/uL; Eosinophils% 1.9 % (0-5); Hematocrit 39.3 % (37-47); Hemoglobin 12.6 g/dL (12.0-15.0); Lymphocyte # 1.65 X10^3/ul (0.83-4.51); Mean Corp Hgb Conc 32.1 g/dL (32-36); Mean Corpuscular Hgb 30.1 pg (27.0-32.0); Mean Corpuscular Volume 93.8 fL (81-99); Mean Platelet Vol. 9.7 fl (6.2-12.0); Monocyte# 0.29 X10^3/uL; Monocyte% 6.1 % (0-10); NRBC Flagged by Analyzer 0 % (0-5); Neutrophil # 2.66 X10^3/uL (2.7-7.7); Neutrophil % 56.4 % (47-70); Platelet Count 359 K/mm3 (150-450); RBC Distribution Width CV 13.1 % (11.6-14.6); RBC Distribution Width SD 44.9 fl (35.1-43.9); Red Blood Count 4.19 M/mm3 (4.2-5.4); White Blood Count 4.7 K/mm3 (4.4-11.0)
[2023-03-04 10:55] LABS: Vitamin D,25 Hydroxy 61.6 ng/mL
[2023-03-04 11:10] LABS: ALB/GLOB Ratio 0.9 RATIO (0.9-2.4); AST(SGOT) 14 U/L (15-37); Alanine Aminotransfer ALT/SGPT 15 U/L (13-56); Albumin, Serum 3.6 g/dL (3.2-5.0); Alkaline Phosphatase 68 U/L (45-117); Anion Gap 5 (5-15); BUN 12 mg/dL (7-18); BUN/Creat Ratio 16.6 RATIO (10-20); Calcium,Total 9.1 mg/dL (8.5-10.1); Chloride 105 mmol/L (98-107); Cholesterol 233 mg/dL (200); Creatinine, Serum 0.72 mg/dL (0.55-1.02); EST Glomerular Filtration Rate 84 mL/min (>60); Est Glom Filt Rate - Afr Amer 102 mL/min (>60); Glucose 96 mg/dL (74-106); High Density Lipoprotein 83 mg/dL; Potassium 3.8 mmol/L (3.5-5.1); Protein, Total 7.6 g/dL (6.4-8.2); Sodium Level 138 mmol/L (136-145); Triglycerides 164 mg/dL; Very Low Density Lipoprotein 33 mg/dL (5-40)
== END | disposition home or self-care (01) ==
LOC: MFPLAB 08:35
PROVIDERS: PCP Family Medicine; Visit Provider Family Medicine
DX: M85.80 Other specified disorders of bone density and structure, unspecified site (principal); Z13.220 Encounter for screening for lipoid disorders; Z13.6 Encounter for screening for cardiovascular disorders
CPT/HCPCS: 36415; 80053; 80061; 82306; 85025

== ENCOUNTER → 2023-04-03 | Outpatient (CLI) | payer MEDICARE, SELFPAY ==
--- NOTE | 2023-04-03 12:06 | BI_ITS ---
MAMMOGRAPHY - BILATERAL SCREENING REASON FOR EXAM: Female, 72 years old. Routine annual screening examination. PERTINENT HISTORY: Daughter with breast cancer. Mother with breast cancer. TECHNIQUE: Digital bilateral breast jovany (3D mammographic acquisition) in the CC and MLO projections. 2-D mediolateral oblique (MLO) and craniocaudad (CC) views of both breasts were obtained. CAD: Full Field Digital Mammography with Computer Added Detection was performed. COMPARISON: Comparison is made with prior study April 01, 2022 and July 01, 2018. FINDINGS: Breast Composition: There are scattered areas of fibroglandular density. There are no dominant masses or suspicious calcifications. Stable small benign-appearing bilateral axillary lymph nodes. No other significant abnormalities are identified. There has been no significant change since the prior study. BI/SCRN MAMM (CAD)W/JOVANY BILAT IMPRESSION: Stable bilateral screening mammogram. Yearly follow-up mammogram recommended. (A) ASSESSMENT CATEGORY: BIRADS Category 2: Benign. A letter regarding these results will be sent to the patient by the facility within 30 days. Approximately 10% of breast cancers are not detected by mammography. A normal mammogram should not delay biopsy of a clinically suspicious abnormality. [id number] Electronically Signed: Theodore Hunter MD at 13:13 EDT ,
== END | disposition home or self-care (01) ==
LOC: OPBI 12:05
PROVIDERS: PCP Family Medicine; Referring Provider Family Medicine; Visit Provider Family Medicine
DX: Z12.31 Encounter for screening mammogram for malignant neoplasm of breast (principal)
CPT/HCPCS: 77063; 77067

== ENCOUNTER 2023-09-30 11:00 | Outpatient (RCR) | payer MEDICARE, SELFPAY ==
--- NOTE | 2023-09-03 15:13 | HP.PTEVAL_ITS ---
Patient's Visit Information Visit Information Visit Information: HUMA HOROWITZ is a 72 year old F referred to Physical Therapy by Dr. Sal Adams MD with a diagnosis of Osteoporosis (R hip and knee). Date of Evaluation: 09/03/23 Physical Therapist: Shai Dunham DPT Visit Plan Frequency: 1x/Week Duration: 4 Weeks Plan: -balance training (pt is high level, can begin with SLS, tandem stance and begin adding uneven surface) working towards stepping in/out of boat indep without LOB -full body strengthening (ex. lifting object from floor to overhead but be cautious, pt has hx of mild stress incontinence) weaker on R side than L >LE strengthening: hamstrings, hip flexors, glutes >UE strengthening: biceps, delts, triceps, postural muscles -TA contraction/core training...began with posterior pelvic tilt but pt unable to hold contraction while continuing to breathe Pt is very high level with balance and strength, but has very little motivation to do ex outside of therapy. DOES NOT WANT to use any machines in gym side of . Pt has hx of stress incontinence, can work on TA/pelvic floor contraction (sustained and quick reflex) and adductor stretching. WBing and resisted ex to help improve bone density. HEP: straight leg hip flex, abd, and ext with GTB, seated adductor stretch, supine PPT Subjective Subjective: Pt presents to PT with main dx of osteoporosis that affects mainly her R hip and knee. Pt has no pain, physician referred her to PT to address recent bone density changes and general weakness. Pt is able to walk for an hour before needing a rest and sit in the car for 3 hours, but has some stiffness with prolonged positions. Has greatest difficulty with stepping out with RLE, like when getting in and out of a boat. Fell twice last year, was looking up and tripped but had no injuries and another instance where she fell on R hip after bumping into but again had no injuries. Main goals are to increase strength: UE and LE. Has some bladder leakage with coughing and lifting heavy objects overhead. Pt denies any N/T, no back pain, sits and watches tv for most of her day. Likes to travel with , otherwise is very inactive and not motivated to do exercises at home. No issues with sleeping or other [employer]. Objective Objective: ROM: no limitations, some tightness in L ibeth adductors and R hamstring MMT: L: hip flex 3+/5, hip ABD 4-/5, hip ext 4-/5, knee flex 4/5, knee ext 4+/5 R: hip flex 3+/5, hip ABD 4-/5, hip ext 4-/5, knee flex 4/5, knee ext 4+/5 some pain with resisted L hip flex in supine 5xSTS: 6.32 MORENO/56 greatest difficulty with tandem stance and SLS MERY/FADIR: - on R hip GAIT: normal gait pattern STAIRS: need to assess, pt reports no currently difficulty or change PALPATION: no areas of tenderness OBSERVATION: pt unable to perform TA contraction without glute compensation, holds breath while doing, has some hx of stress incontinence Overall, pt is doing well with ROM and currently has no pain. Pt is inactive throughout day but still travels frequently with . Pt feels weakness/fu nctional stamina is greatest limiting factor with prolonged walking, multiple flights of steps, and stepping up or down from uneven surfaces. Balance/Special Test Scores Oswestry Low Back Score: 4 Goals Goal 1:: Pt will demonstrate global LE strength 4+/5 Goal Time Frame: 2-4 Weeks Goal 2:: Pt will perform proper TA contraction technique without cueing in order to address stress incontinence Goal Time Frame: 2-4 Weeks Goal 3:: Pt will score 56/56 on MORENO balance scale to indicate improved dynamic balance Goal Time Frame: 2-4 Weeks Goal 4:: Pt will perform step-up/down on 12 uneven surface indep with no LOB to prepare pt for travel and getting in/out of boat safely Goal Time Frame: 2-4 Weeks Rehabilitation Potential Physical Therapy Diagnosis: Pt presents with mild weakness in R hip and balance deficits and when combined with inactivity, poses a safety risk of potential osteoporotic fracture if pt were to fall. Pt would benefit from PT services to address functional strength, stamina, and dynamic balance. Rehabilitation Potential: Fair Anticipated Interventions Patient/Client Instruction: Educate patient on: Plan of Care For the Purpose of:: To improve gait and locomotor functions, To improve endurance, To improve balance, To improve safety with gait, To improve safety, To improve health and function, To foster healthy habits, To improve decision making, To improve self management and To improve ability to perform tasks related to life management Therapeutic Exercise to Include: Strength training, Balance training and Body mechanics For the Purpose of:: To improve endurance, To improve balance, To improve safety with gait, To improve safety, To improve health and function, To foster healthy habits, To improve decision making, To improve self management and To improve ability to perform tasks related to life management Manual Therapy Techniques to Include: Soft tissue mobilization For the Purpose of:: To decrease pain, To decrease soft tissue restriction and To increase flexibility/ROM Cryotherapy (ice pack, ice massage): Yes Thermo therapy (hot pack): Yes Ultrasound (thermal/non thermal): Yes For the Purpose of:: To decrease pain, To decrease swelling/inflammation, To improve health of tissue, To decrease soft tissue restriction and To increase flexibility/ROM Text: Thank you for the opportunity to evaluate your patient. For Medicare and Medicare HMO plans, please review the plan of care and approve it. It will need to be FAXED BACK to us at [phone] for Medicare purposes. For Medicare only, by signing this I certify the plan of care. Please let me know if there are questions or concerns regarding this plan of care. Physician Signature: Date:
--- NOTE | 2023-10-06 08:18 | HP.PTDCSUM ---
Discharge Summary D/C summary: It has been my pleasure to treat HUMA HOROWITZ referred by Dr. Sal Adams MD, with the diagnosis of Osteoporosis (R hip and knee) for a total of 5 visit(s). Discharge Date: 09/30/23 Please see the following information for a summary of their discharge status. Subjective Subjective: Pt reports soreness after last session for 2 or 3 days, but has since subsided. Pt reports that last session she felt like she was worked hard in a good way and has felt her strength has improved overall. Pt has been able to walk more regularly outside. Overall Improvement % Improvement: 80 Objective Objective/Function: MMT: LLE - knee ext 5/5, knee flex 4/5, hip ABD 4+/5, hip ext 4+/5, DF 4+/5, PF 4+/5 RLE - knee ext 5/5, knee flex 4/5, hip ABD 4+/5, hip ext 4+/5, DF 4+/5, PF 4+/5 ROM: WNL for ibeth hips and knees GAIT: normalized pattern with no AD STAIRS: no use of UE, pt tendency to look down at feet when descending but self-corrected Overall pt doing very well, has improved strength and amount of acitivity at home. Introduced 6 more exercises for HEP and educated pt to attempt to do some form of activity everyday. Goals Goal 1:: Pt will demonstrate global LE strength 4+/5 Goal Progress: Goal Met Goal 2:: Pt will perform proper TA contraction technique without cueing in order to address stress incontinence Goal Progress: Goal Met Goal 3:: Pt will score 56/56 on MORENO balance scale to indicate improved dynamic balance Goal Progress: DNT Goal 4:: Pt will perform step-up/down on 12 uneven surface indep with no LOB to prepare pt for travel and getting in/out of boat safely Goal Progress: Goal Met Plan Plan: Pt to d/c home with updated HEP. Pt has met major goals of improving LE strength and a good understanding of HEP to improve LE strength with necessary WB act to help with dx of osteoporosis. D/C Information Discharge Comments: Pt to d/c home and continue with HEP indep. Pt. has met goals and currently I with HEP. Pt. encouraged to progress walking program in conjunction with her strengthening exercises. d/c sentence: If there are questions or concerns regarding this patient's physical therapy, please feel free to call me at [phone]. Thank you for the referral of this patient. Sincerely, Shai Dunham, DPT Balance/Gait/Functional tests Balance/Special Test Scores Oswestry Low Back Score: 4 Improvement % Improvement: 80
== END 2023-09-30 19:00 | disposition home or self-care (01) ==
LOC: PT 11:00
PROVIDERS: PCP Family Medicine; Referring Provider Family Medicine; Visit Provider Family Medicine
DX: M81.0 Age-related osteoporosis without current pathological fracture (principal); M85.851 Other specified disorders of bone density and structure, right thigh; M85.88 Other specified disorders of bone density and structure, other site
CPT/HCPCS: 97110; 97161; 97530

== ENCOUNTER 2024-02-12 08:42 | Outpatient (CLI) | payer MEDICARE, SELFPAY ==
[2024-02-12 10:06] LABS: Absolute Lymphocyte Count 1.59 X10^3/uL (0.83-4.51); Absolute Neutrophil Count 2.9 X10^3/uL (2.0-7.7); Basophil# 0.04 X10^3/uL; Basophil% 0.8 % (0-1); Eosinophil# 0.07 X10^3/uL; Eosinophils% 1.4 % (0-5); Hematocrit 39.2 % (37-47); Hemoglobin 13.2 g/dL (12.0-15.0); Lymphocyte # 1.59 X10^3/ul (0.83-4.51); Lymphocyte % 32.5 % (19-41); Mean Corp Hgb Conc 33.7 g/dL (32-36); Mean Corpuscular Hgb 30.6 pg (27.0-32.0); Mean Platelet Vol. 9.6 fl (6.2-12.0); Monocyte% 6.1 % (0-10); NRBC Flagged by Analyzer 0 % (0-5); Neutrophil # 2.87 X10^3/uL (2.7-7.7); Neutrophil % 58.8 % (47-70); Platelet Count 376 K/mm3 (150-450); RBC Distribution Width CV 13.4 % (11.6-14.6); RBC Distribution Width SD 45.5 fl (35.1-43.9); Red Blood Count 4.31 M/mm3 (4.2-5.4); White Blood Count 4.9 K/mm3 (4.4-11.0)
[2024-02-12 10:27] LABS: Vitamin D,25 Hydroxy 52.3 ng/mL
[2024-02-12 10:37] LABS: ALB/GLOB Ratio 0.9 RATIO (0.9-2.4); AST(SGOT) 19 U/L (15-37); Alanine Aminotransfer ALT/SGPT 18 U/L (13-56); Albumin, Serum 3.8 g/dL (3.2-5.0); Alkaline Phosphatase 76 U/L (45-117); Anion Gap 5 (5-15); BUN 17 mg/dL (7-18); BUN/Creat Ratio 20.7 RATIO (10-20); Calcium,Total 9.4 mg/dL (8.5-10.1); Chloride 106 mmol/L (98-107); Cholesterol 229 mg/dL (200); Creatinine, Serum 0.82 mg/dL (0.55-1.02); EST Glomerular Filtration Rate 73 mL/min (>60); Est Glom Filt Rate - Afr Amer 88 mL/min (>60); Globulin 4.2 g/dL (2.2-4.2); Glucose 105 mg/dL (74-106); High Density Lipoprotein 91 mg/dL; Potassium 3.8 mmol/L (3.5-5.1); Sodium Level 137 mmol/L (136-145); Triglycerides 122 mg/dL; Very Low Density Lipoprotein 24 mg/dL (5-40)
== END 2024-02-12 23:59 | disposition home or self-care (01) ==
LOC: MFPLAB 08:43
PROVIDERS: PCP Family Medicine; Visit Provider Family Medicine
DX: M81.0 Age-related osteoporosis without current pathological fracture (principal); Z13.6 Encounter for screening for cardiovascular disorders
CPT/HCPCS: 36415; 80053; 80061; 82306; 85025

== ENCOUNTER → 2024-04-07 | Outpatient (CLI) | payer MEDICARE, SELFPAY ==
--- NOTE | 2024-04-07 08:13 | BD_ITS ---
STUDY: DUAL ENERGY X-RAY ABSORPTIOMETRY / DXA REASON FOR EXAM: Female, 73 years old. M810 TECHNIQUE: Bone Mineral Density (BMD) measurements of lumbar spine and bilateral hips were obtained. COMPARISON: Comparison is made with prior study April 01, 2022. FINDINGS: Lumbar Spine (L1-L4): g/cm2 (0.865) / T-score (-1.7) / Z-score (0.5) Findings are suggestive of osteopenia with a moderate fracture risk. Left Femur Total: g/cm2 (0.753) / T-score (-1.5) / Z-score (0.0) Left Femoral Neck: g/cm2 (0.544) / T-score (-2.7) / Z-score (-0.9) Right Femur Total: g/cm2 (0.718) / T-score (-1.8) / Z-score (-0.2) Right Femoral Neck: g/cm2 (0.534) / T-score (-2.8) / Z-score (-1.0) The T-Scores on the most recent prior examination were: Lumbar Spine (L1-L4): There has been worsening of bone density since the previous examination. Left Femur Total: which represents a worsening of 2.6%. Right Femur Total: which represents a worsening of 3.3%. BD/Dexa Bone Density Study IMPRESSION: The patient is considered osteoporotic as outlined below according to World [employer] Organization (WHO) criteria with a high fracture risk. There has been worsening of bone density since the previous examination. Reference Information: The T-score is the number of standard deviations above or below the standard which is normal for young adults at their peak bone mineral density. The World Health Organization (WHO) interprets the T-scores as follows: Above -1 Normal bone density Between -1 and -2.5 Osteopenia Equal to / or below -2.5 Osteoporosis As a practical clinical guideline, osteopenia may be graded as follows: Mild -1 through -1.5 Moderate -1.6 through -2.0 Severe -2.1 through -2.4 The Z-score is the number of standard deviations above or below age-matched controls. A Z-score of less than -1.5 would be considered abnormal. References: 1. NIH Osteoporosis and Related Bone Diseases www osteo.org 2. International Society for Clinical Densitometry www iscd.org 3. National Osteoporosis Foundation www nof.org Electronically Signed: Theodore Hunter MD at 9:22 EDT ,
== END | disposition home or self-care (01) ==
LOC: OPBD 08:11
PROVIDERS: PCP Family Medicine; Referring Provider Family Medicine; Visit Provider Family Medicine
DX: M81.0 Age-related osteoporosis without current pathological fracture (principal)
CPT/HCPCS: 77080